=== PATIENT | male | born 1955 | race Caucasian/White ===

== ENCOUNTER 2021-04-12 07:19 | Emergency (ER) | payer SELFPAY ==
[~2021-04-12] VITALS: Ht 180.3 cm; Wt 90.9 kg
[2021-04-12] MEDS ORDERED: ALBU8HFA IH (07:32)
[2021-04-12] MEDS ORDERED: MAGNESIUM CITRATE 300 ML ORAL SOLUTION PO ONE (08:45)
[2021-04-12 09:17] VITALS: BP 153/91
== END 2021-04-12 11:33 | disposition home or self-care (01) ==
LOC: EMS 07:27
DX: S20.211A Contusion of right front wall of thorax, initial encounter (principal); K59.00 Constipation, unspecified; G89.29 Other chronic pain; M25.552 Pain in left hip; J44.9 Chronic obstructive pulmonary disease, unspecified; Z88.0 Allergy status to penicillin; Z88.6 Allergy status to analgesic agent; Z79.899 Other long term (current) drug therapy; W05.0XXA Fall from non-moving wheelchair, initial encounter; Y93.89 Activity, other specified; Y92.89 Other specified places as the place of occurrence of the external cause; Y99.8 Other external cause status
CPT/HCPCS: 74022; 82962; 99283

== ENCOUNTER 2021-04-28 21:50 | Inpatient (IN) | payer MEDICAID ==
[~2021-04-28] VITALS: Ht 185.4 cm; Wt 75.2 kg
[~2021-04-28 21:50] MED LIST: ALBU8HFA IH
[2021-04-28] MEDS ORDERED: BUPR-93 PO (22:17)
[2021-04-28] MEDS ORDERED: BUPR150SR PO (22:17)
[2021-04-28 22:29] LABS: BASOPHILS % (AUTO) 1.6 % (0.0-2.0); HEMATOCRIT 37.8 % (41-53); HEMOGLOBIN 12.6 g/dL (13.5-17.5); LYMPHOCYTES # (AUTO) 1.3 K/uL (1.0-4.8); LYMPHOCYTES % (AUTO) 16.9 % (22.0-44.0); MEAN CORPUSCULAR HEMOGLOBIN 32.5 pg (26.0-34.0); MEAN CORPUSCULAR HGB CONC 33.4 G/dL (31.0-37.0); MEAN CORPUSCULAR VOLUME 97 fL (80-100); MONOCYTES # (AUTO) 0.8 K/uL (0.1-1.0); MONOCYTES % (AUTO) 10.4 % (2.0-9.0); NEUTROPHILS # (AUTO) 5.5 K/uL (1.8-7.7); NEUTROPHILS % (AUTO) 70.1 % (40.0-70.0); PLATELET COUNT (AUTO) 296 K/uL (150-450); RED BLOOD CELL COUNT(AUTO) 3.88 MIL/uL (4.50-5.90); RED CELL DISTRIBUTION WIDTH 15.7 % (11.5-14.5)
[2021-04-28] MEDS ORDERED: ALBUTEROL SULFATE HFA 90 MCG/PUFF 8 GM INHALER IH ONE (23:00)
[2021-04-28] MEDS ORDERED: KETOROLAC TROMETHAMINE 30 MG/ML VIAL IM ONE (23:00)
[2021-04-28 23:03] LABS: ANION GAP 4 mmol/L (8-16); CALCIUM, TOTAL 8.6 mg/dL (8.8-10.5); CARBON DIOXIDE 30 mmol/L (22-29); CHLORIDE 104 mmol/L (98-107); CREATININE 0.83 mg/dL (0.60-1.30); GLOMERULAR FILTR. RATE CALC > 60 mL/min (>60); GLUCOSE,RANDOM 94 mg/dL (70-110); POTASSIUM 3.9 mmol/L (3.5-5.1); SODIUM SERUM 138 mmol/L (136-145); UREA NITROGEN, BLOOD 13 mg/dL (7-18)
[2021-04-28 23:08] LABS: ALANINE AMINOTRANSFERASE 27 U/L (12-78); ALBUMIN 3.3 g/dL (3.4-5.0); ALKALINE PHOSPHATASE 155 U/L (46-116); ASPARTATE AMINOTRANSFERASE 34 U/L (15-37); BILIRUBIN,TOTAL 0.6 mg/dL (0.1-1.0); TOTAL PROTEIN, SERUM 6.3 g/dL (6.4-8.2)
[2021-04-28 23:40] LABS: SALICYLATE 2.5 mg/dL (2.8-20.0)
[2021-04-28 23:43] LABS: ACETAMINOPHEN < 2 mcg/mL (10-30)
[2021-04-29] MEDS ORDERED: HALOPERIDOL 5 MG TABLET PO PRN (00:45)
[2021-04-29 02:07] LABS: COVID AG,FIA SOURCE NASOPHARYNGEAL
[2021-04-29 03:15] VITALS: BP 130/99
[2021-04-29] MEDS: LORazepam 2 MG TABLET PO PRN ×3 (03:43→20:50)
[2021-04-29 04:02] LABS: APPEARANCE,URINE SL CLOUDY (CLEAR); BILIRUBIN,URINE NEGATIVE (NEGATIVE); GLUCOSE, URINE (UA) NEGATIVE (NEGATIVE); KETONES,URINE NEGATIVE (NEGATIVE); LEUKOCYTE ESTERASE ,URINE NEGATIVE (NEGATIVE); NITRATE,URINE NEGATIVE (NEGATIVE); OCCULT BLOOD,URINE NEGATIVE (NEGATIVE); PROTEIN,URINE NEGATIVE (NEGATIVE)
[2021-04-29 04:07] LABS: AMPHET/METH SCREEN,URINE NEGATIVE (NEGATIVE); BARBITURATE SCREEN, URINE NEGATIVE (NEGATIVE); BENZODIAZEPINES SCREEN,URINE NEGATIVE (NEGATIVE); CANNABINOID SCREEN,URINE NEGATIVE (NEGATIVE); COCAINE SCREEN,URINE NEGATIVE (NEGATIVE); METHADONE SCREEN, URINE NEGATIVE (NEGATIVE); OPIATE SCREEN,URINE NEGATIVE (NEGATIVE)
[2021-04-29 04:08] LABS: PHENCYCLIDINE SCREEN,URINE NEGATIVE (NEGATIVE)
[2021-04-29] MEDS ORDERED: MAGNESIUM HYDROXIDE SUSPENSION 30 ML UDCUP PO PRN (07:15)
[2021-04-29] MEDS ORDERED: PETROLATUM,WHITE 28 GM JELLY TP PRN (07:15)
[2021-04-29] MEDS ORDERED: DOCUSATE SODIUM 100 MG CAPSULE PO PRN (07:15)
[2021-04-29] MEDS ORDERED: CloNIDine HCL 0.1 MG TABLET PO PRN (07:15)
[2021-04-29] MEDS ORDERED: ONDANSETRON HCL 4 MG TABLET PO PRN (07:15)
[2021-04-29] MEDS ORDERED: LOPERAMIDE HCL 2 MG CAPSULE PO PRN (07:15)
[2021-04-29] MEDS ORDERED: ALBUTEROL SULFATE HFA 90 MCG/PUFF 8 GM INHALER IH PRN ×2 (07:15)
[2021-04-29] MEDS ORDERED: MAG HYDROX/AL HYDROX/SIMETH ES 30 ML SUSPENSION UDCUP PO PRN (07:15)
[2021-04-29] MEDS ORDERED: NICOTINE 14 MG/24 HOUR PATCH TD PRN (07:15)
[2021-04-29] MEDS ORDERED: GuaiFENesin/D-METHORPHAN [SUGAR-FREE] 200-20MG/10 ML SYRUP UDCUP PO PRN (07:15)
[2021-04-29] MEDS: BuPROPion HCL XL 150 MG ER TABLET PO SCH ×2 (12:31→16:28)
[2021-04-29 16:28] VITALS: BP 169/97
[2021-04-29] MEDS: ACETAMINOPHEN 325 MG TABLET PO PRN (16:28)
[2021-04-29 17:29] VITALS: BP 156/94
[2021-04-29] MEDS: ZOLPIDEM TARTRATE 10 MG TABLET PO PRN (20:58)
[2021-04-30] MEDS: IBUPROFEN 400 MG TABLET PO PRN ×2 (00:27→20:13)
[2021-04-30 00:53] VITALS: BP 156/90
[2021-04-30] MEDS: LORazepam 2 MG TABLET PO PRN ×3 (00:53→23:14)
[2021-04-30] MEDS: ACETAMINOPHEN 325 MG TABLET PO PRN (00:53)
[2021-04-30] MEDS: BuPROPion HCL XL 150 MG ER TABLET PO SCH ×2 (09:37→16:21)
[2021-04-30 09:42] VITALS: BP 160/81
[2021-04-30] MEDS: ALBUTEROL SULFATE HFA 90 MCG/PUFF 8 GM INHALER IH PRN ×2 (15:30→20:14)
[2021-04-30 16:13] VITALS: BP 152/84
[2021-04-30 20:13] VITALS: BP 150/81
[2021-04-30 21:13] VITALS: BP 148/85
[2021-05-01] VITALS (7 sets, daily range): BP systolic 135–152; BP diastolic 62–88
[2021-05-01] MEDS: ALBUTEROL SULFATE HFA 90 MCG/PUFF 8 GM INHALER IH PRN ×3 (07:02→22:43)
[2021-05-01] MEDS: BuPROPion HCL XL 150 MG ER TABLET PO SCH ×2 (08:13→16:12)
[2021-05-01] MEDS: LORazepam 2 MG TABLET PO PRN ×3 (08:15→22:53)
[2021-05-01] MEDS: IBUPROFEN 400 MG TABLET PO PRN ×2 (09:35→22:43)
[2021-05-02 04:05] VITALS: BP 128/77
[2021-05-02] MEDS: BuPROPion HCL XL 150 MG ER TABLET PO SCH ×2 (07:46→16:03)
[2021-05-02] MEDS: ALBUTEROL SULFATE HFA 90 MCG/PUFF 8 GM INHALER IH PRN ×2 (07:48→20:32)
[2021-05-02] MEDS: LORazepam 2 MG TABLET PO PRN ×3 (08:05→21:21)
[2021-05-02 08:55] VITALS: BP 130/72
[2021-05-02 17:20] VITALS: BP 137/80
[2021-05-02 20:04] VITALS: BP 142/79
[2021-05-02] MEDS: IBUPROFEN 400 MG TABLET PO PRN (20:04)
[2021-05-02 21:04] VITALS: BP 138/78
[2021-05-03] MEDS: ALBUTEROL SULFATE HFA 90 MCG/PUFF 8 GM INHALER IH PRN ×4 (03:43→21:03)
[2021-05-03] MEDS: LORazepam 2 MG TABLET PO PRN ×4 (03:44→21:54)
[2021-05-03 03:56] VITALS: BP 128/75
[2021-05-03] MEDS: BuPROPion HCL XL 150 MG ER TABLET PO SCH ×2 (08:58→16:24)
[2021-05-03 09:00] VITALS: BP 134/78
[2021-05-03] MEDS: IBUPROFEN 400 MG TABLET PO PRN ×2 (09:49→21:01)
[2021-05-03 16:00] VITALS: BP 141/85
[2021-05-04 04:49] VITALS: BP 129/71
[2021-05-04 08:48] VITALS: BP 146/84
[2021-05-04] MEDS: BuPROPion HCL XL 150 MG ER TABLET PO SCH ×2 (08:49→16:18)
[2021-05-04] MEDS: LORazepam 2 MG TABLET PO PRN ×2 (08:55→16:59)
[2021-05-04] MEDS: IBUPROFEN 400 MG TABLET PO PRN ×2 (08:55→20:08)
[2021-05-04 16:00] VITALS: BP 126/89
[2021-05-04 16:32] VITALS: BP 126/89
[2021-05-05] MEDS: BuPROPion HCL XL 150 MG ER TABLET PO SCH ×2 (08:34→16:27)
[2021-05-05] MEDS: LORazepam 2 MG TABLET PO PRN ×3 (08:35→22:37)
[2021-05-05 11:31] LABS: COVID AG,FIA SOURCE NASOPHARYNGEAL
[2021-05-05 16:10] VITALS: BP 121/75
[2021-05-05 16:54] VITALS: BP 120/77
[2021-05-05] MEDS: ALBUTEROL SULFATE HFA 90 MCG/PUFF 8 GM INHALER IH PRN (16:55)
[2021-05-05 17:54] VITALS: BP 119/65
[2021-05-05 22:37] VITALS: BP 128/69
[2021-05-06] MEDS: IBUPROFEN 400 MG TABLET PO PRN ×2 (00:48→09:06)
[2021-05-06 00:51] VITALS: BP 149/78
[2021-05-06] MEDS: ALBUTEROL SULFATE HFA 90 MCG/PUFF 8 GM INHALER IH PRN ×3 (00:58→20:16)
[2021-05-06 09:04] VITALS: BP 142/79
[2021-05-06] MEDS: LORazepam 2 MG TABLET PO PRN ×3 (09:07→22:41)
[2021-05-06] MEDS: BuPROPion HCL XL 150 MG ER TABLET PO SCH ×2 (09:07→17:12)
[2021-05-06 16:43] VITALS: BP 146/86
[2021-05-06] MEDS: ZOLPIDEM TARTRATE 10 MG TABLET PO PRN (22:41)
[2021-05-07 00:25] VITALS: BP 140/80
[2021-05-07 08:01] VITALS: BP 132/76
[2021-05-07] MEDS: LORazepam 2 MG TABLET PO PRN ×3 (09:03→20:54)
[2021-05-07] MEDS: BuPROPion HCL XL 150 MG ER TABLET PO SCH ×2 (09:04→16:12)
[2021-05-07 16:38] VITALS: BP 152/82
[2021-05-07] MEDS: ZOLPIDEM TARTRATE 10 MG TABLET PO PRN (20:54)
[2021-05-08] MEDS: BuPROPion HCL XL 150 MG ER TABLET PO SCH ×2 (08:01→16:42)
[2021-05-08] MEDS: LORazepam 2 MG TABLET PO PRN ×3 (08:35→21:02)
[2021-05-08 09:43] VITALS: BP 147/71
[2021-05-08 16:18] VITALS: BP 149/83
[2021-05-08] MEDS: ZOLPIDEM TARTRATE 10 MG TABLET PO PRN (21:03)
[2021-05-09] MEDS: LORazepam 2 MG TABLET PO PRN ×4 (02:27→20:43)
[2021-05-09 02:30] VITALS: BP 142/80
[2021-05-09] MEDS: IBUPROFEN 400 MG TABLET PO PRN ×2 (02:30→10:30)
[2021-05-09] MEDS: BuPROPion HCL XL 150 MG ER TABLET PO SCH ×2 (08:06→16:26)
[2021-05-09 08:30] VITALS: BP 129/81
[2021-05-09] MEDS: ALBUTEROL SULFATE HFA 90 MCG/PUFF 8 GM INHALER IH PRN (09:35)
[2021-05-09] MEDS: ZOLPIDEM TARTRATE 10 MG TABLET PO PRN (20:43)
[2021-05-10 02:08] VITALS: BP 140/69
[2021-05-10] MEDS: LORazepam 2 MG TABLET PO PRN ×3 (02:08→18:07)
[2021-05-10] MEDS: BuPROPion HCL XL 150 MG ER TABLET PO SCH ×2 (08:28→16:40)
[2021-05-10 09:24] VITALS: BP 143/80
[2021-05-10 16:00] VITALS: BP 141/69
[2021-05-10] MEDS: ALBUTEROL SULFATE HFA 90 MCG/PUFF 8 GM INHALER IH PRN (18:09)
[2021-05-10] MEDS: IBUPROFEN 400 MG TABLET PO PRN (19:30)
[2021-05-11 01:24] VITALS: BP 147/77
[2021-05-11] MEDS: LORazepam 2 MG TABLET PO PRN ×2 (01:44→08:39)
[2021-05-11] MEDS: ZOLPIDEM TARTRATE 10 MG TABLET PO PRN (01:44)
[2021-05-11] MEDS: BuPROPion HCL XL 150 MG ER TABLET PO SCH (08:35)
[2021-05-11 11:49] VITALS: BP 141/78
== END 2021-05-11 15:45 | disposition home or self-care (01) | DRG 751 ==
LOC: EMS 21:50 → 3EI 04-29 01:58
PROVIDERS: ADMIT Psychiatry & Neurology Child & Adolescent Psychiatry; ATTEND Psychiatry & Neurology Child & Adolescent Psychiatry
DX: F33.2 Major depressive disorder, recurrent severe without psychotic features (principal); E44.0 Moderate protein-calorie malnutrition; R45.851 Suicidal ideations; J44.9 Chronic obstructive pulmonary disease, unspecified; Z91.19 Patient's noncompliance with other medical treatment and regimen; K59.00 Constipation, unspecified; Z59.0 Homelessness; Z96.649 Presence of unspecified artificial hip joint; Z91.5 Personal history of self-harm; Z68.21 Body mass index [BMI] 21.0-21.9, adult; F17.200 Nicotine dependence, unspecified, uncomplicated; G89.29 Other chronic pain; R29.6 Repeated falls; Z88.6 Allergy status to analgesic agent; Z88.0 Allergy status to penicillin
CPT/HCPCS: 71046; 80053; 80061; 81003; 85025; 99285; G0480; G0481; J1885; J3535; 36415-L1; 36415-TC

== ENCOUNTER 2021-07-09 03:08 | Inpatient (IN) | payer MEDICAID ==
[~2021-07-09] VITALS: Ht 185.4 cm; Wt 72.4 kg
[~2021-07-09 03:08] MED LIST changes: -ALBU8HFA IH; +BUPR150SR PO
[2021-07-09 03:51] LABS: EOSINOPHILS % (AUTO) 1.7 % (1.0-6.0); HEMATOCRIT 40.4 % (41-53); HEMOGLOBIN 13.5 g/dL (13.5-17.5); LYMPHOCYTES # (AUTO) 1.9 K/uL (1.0-4.8); LYMPHOCYTES % (AUTO) 21.5 % (22.0-44.0); MEAN CORPUSCULAR HGB CONC 33.4 G/dL (31.0-37.0); MEAN CORPUSCULAR VOLUME 96 fL (80-100); MONOCYTES # (AUTO) 0.8 K/uL (0.1-1.0); MONOCYTES % (AUTO) 9.5 % (2.0-9.0); NEUTROPHILS # (AUTO) 5.8 K/uL (1.8-7.7); NEUTROPHILS % (AUTO) 66.3 % (40.0-70.0); PLATELET COUNT (AUTO) 222 K/uL (150-450); RED BLOOD CELL COUNT(AUTO) 4.21 MIL/uL (4.50-5.90)
[2021-07-09 04:07] LABS: ANION GAP 6 mmol/L (8-16); CALCIUM, TOTAL 8.6 mg/dL (8.8-10.5); CARBON DIOXIDE 30 mmol/L (22-29); CHLORIDE 104 mmol/L (98-107); CREATININE 0.75 mg/dL (0.60-1.30); GLOMERULAR FILTR. RATE CALC > 60 mL/min (>60); GLUCOSE,RANDOM 79 mg/dL (70-110); POTASSIUM 3.7 mmol/L (3.5-5.1); SODIUM SERUM 140 mmol/L (136-145); UREA NITROGEN, BLOOD 15 mg/dL (7-18)
[2021-07-09 04:11] LABS: ALANINE AMINOTRANSFERASE 45 U/L (12-78); ALBUMIN 3.6 g/dL (3.4-5.0); ALKALINE PHOSPHATASE 116 U/L (46-116); ASPARTATE AMINOTRANSFERASE 35 U/L (15-37); BILIRUBIN,TOTAL 0.5 mg/dL (0.1-1.0); TOTAL PROTEIN, SERUM 6.9 g/dL (6.4-8.2)
[2021-07-09 04:23] LABS: COVID AG,FIA SOURCE NASOPHARYNGEAL
[2021-07-09] MEDS ORDERED: PERMETHRIN 5% 60 GM CREAM TP ONE (04:30)
[2021-07-09] MEDS ORDERED: HALOPERIDOL 5 MG TABLET PO PRN (04:45)
[2021-07-09] MEDS ORDERED: ZOLPIDEM TARTRATE 10 MG TABLET PO PRN (04:45)
[2021-07-09 05:42] LABS: APPEARANCE,URINE CLEAR (CLEAR); BILIRUBIN,URINE NEGATIVE (NEGATIVE); GLUCOSE, URINE (UA) NEGATIVE (NEGATIVE); KETONES,URINE NEGATIVE (NEGATIVE); LEUKOCYTE ESTERASE ,URINE NEGATIVE (NEGATIVE); NITRATE,URINE NEGATIVE (NEGATIVE); OCCULT BLOOD,URINE NEGATIVE (NEGATIVE); PROTEIN,URINE NEGATIVE (NEGATIVE); UROBILINOGEN,URINE 0.2 mg/dL (<=1.0)
[2021-07-09] MEDS ORDERED: HALOPERIDOL LACTATE 5 MG/ML VIAL IM ONE (05:45)
[2021-07-09 05:47] LABS: AMPHET/METH SCREEN,URINE NEGATIVE (NEGATIVE); BARBITURATE SCREEN, URINE NEGATIVE (NEGATIVE); BENZODIAZEPINES SCREEN,URINE NEGATIVE (NEGATIVE); CANNABINOID SCREEN,URINE NEGATIVE (NEGATIVE); COCAINE SCREEN,URINE NEGATIVE (NEGATIVE); METHADONE SCREEN, URINE NEGATIVE (NEGATIVE); OPIATE SCREEN,URINE NEGATIVE (NEGATIVE)
[2021-07-09 05:53] LABS: PHENCYCLIDINE SCREEN,URINE NEGATIVE (NEGATIVE)
[2021-07-09] MEDS ORDERED: ONDANSETRON HCL 4 MG TABLET PO PRN (08:30)
[2021-07-09] MEDS ORDERED: LOPERAMIDE HCL 2 MG CAPSULE PO PRN (08:30)
[2021-07-09] MEDS ORDERED: CloNIDine HCL 0.1 MG TABLET PO PRN (08:30)
[2021-07-09] MEDS ORDERED: BACITRACIN 28 GM OINTMENT TP PRN (08:30)
[2021-07-09] MEDS ORDERED: ALBUTEROL SULFATE HFA 90 MCG/PUFF 8 GM INHALER IH PRN (08:30)
[2021-07-09] MEDS ORDERED: OMEPRAZOLE 20 MG CAPSULE PO PRN (08:30)
[2021-07-09] MEDS ORDERED: PETROLATUM,WHITE 28 GM JELLY TP PRN (08:30)
[2021-07-09] MEDS ORDERED: MAGNESIUM HYDROXIDE SUSPENSION 30 ML UDCUP PO PRN (08:30)
[2021-07-09] MEDS ORDERED: DOCUSATE SODIUM 100 MG CAPSULE PO PRN (08:30)
[2021-07-09] MEDS ORDERED: BENZOCAINE/MENTHOL LOZENGE PO PRN (08:30)
[2021-07-09] MEDS ORDERED: MAG HYDROX/AL HYDROX/SIMETH ES 30 ML SUSPENSION UDCUP PO PRN (08:30)
[2021-07-09 11:43] VITALS: BP 120/69
[2021-07-09] MEDS: ACETAMINOPHEN 325 MG TABLET PO PRN ×2 (13:20→19:21)
[2021-07-09 16:19] VITALS: BP 110/81
[2021-07-09] MEDS ORDERED: PNEUMOCOCCAL VACCINE POLYVALENT 0.5 ML VIAL [PPSV23] IM. ONE (21:45)
[2021-07-10] MEDS: LORazepam 2 MG TABLET PO PRN ×4 (00:42→17:57)
[2021-07-10] MEDS: ACETAMINOPHEN 325 MG TABLET PO PRN (00:43)
[2021-07-10 00:45] VITALS: BP_SYST 180; BP_SYST 182; BP_DIAS 85
[2021-07-10 01:51] LABS: CHOL/HDL RATIO 2.2 (4.2-7.3); CHOLESTEROL 158 mg/dL (131-200); HDL CHOLESTEROL 71 mg/dL (40-60); LDL CHOL (CALC.) 75 mg/dL (0-130); TRIGLYCERIDES 58 mg/dL (15-150)
[2021-07-10] MEDS: BuPROPion HCL XL 150 MG ER TABLET PO SCH ×2 (08:32→12:39)
[2021-07-10 08:55] VITALS: BP 140/86
[2021-07-10 16:22] VITALS: BP 112/82
[2021-07-11] MEDS: ACETAMINOPHEN 325 MG TABLET PO PRN (03:26)
[2021-07-11] MEDS: LORazepam 2 MG TABLET PO PRN ×2 (03:26→10:42)
[2021-07-11 03:27] VITALS: BP 123/88
[2021-07-11 06:29] VITALS: BP 106/78
[2021-07-11] MEDS: BuPROPion HCL XL 150 MG ER TABLET PO SCH ×2 (08:25→12:35)
[2021-07-11 08:30] VITALS: BP 131/74
[2021-07-11] MEDS ORDERED: BUPR-93 PO (12:55)
== END 2021-07-11 13:50 | disposition home or self-care (01) | DRG 754 ==
LOC: EMS 03:10 → B3A 05:12
PROVIDERS: ADMIT Psychiatry & Neurology Psychiatry; ATTEND Psychiatry & Neurology Psychiatry
DX: F32.9 Major depressive disorder, single episode, unspecified (principal); R45.851 Suicidal ideations; F17.210 Nicotine dependence, cigarettes, uncomplicated; F20.9 Schizophrenia, unspecified; G89.29 Other chronic pain; J44.9 Chronic obstructive pulmonary disease, unspecified; L29.9 Pruritus, unspecified; Y90.4 Blood alcohol level of 80-99 mg/100 ml; Z20.822 Contact with and (suspected) exposure to COVID-19; Z96.649 Presence of unspecified artificial hip joint; G47.00 Insomnia, unspecified; K59.00 Constipation, unspecified; F19.10 Other psychoactive substance abuse, uncomplicated; M25.552 Pain in left hip; F41.9 Anxiety disorder, unspecified; Z88.0 Allergy status to penicillin; Z88.8 Allergy status to other drugs, medicaments and biological substances; Z79.899 Other long term (current) drug therapy
CPT/HCPCS: 80053; 80061; 81003; 85025; 99285; G0480; J1630

== ENCOUNTER 2021-07-28 03:06 | Inpatient (IN) | payer MEDICAID ==
[~2021-07-28 03:06] MED LIST changes: +BUPR-93 PO; -BUPR150SR PO
== END 2021-07-28 06:55 | disposition home or self-care (01) | DRG 750 ==
LOC: B2S 04:00
PROVIDERS: ADMIT Psychiatry & Neurology Psychiatry; ATTEND Psychiatry & Neurology Psychiatry
DX: F25.0 Schizoaffective disorder, bipolar type (principal); G89.29 Other chronic pain; M25.552 Pain in left hip; Z53.29 Procedure and treatment not carried out because of patient's decision for other reasons; Z88.0 Allergy status to penicillin; Z88.8 Allergy status to other drugs, medicaments and biological substances
CPT/HCPCS: 87081

== ENCOUNTER 2021-08-01 02:07 | Inpatient (IN) | payer MEDICAID ==
[~2021-08-01] VITALS: Ht 188 cm; Wt 32.7 kg
[2021-08-01] MEDS ORDERED: ACETAMINOPHEN 500 MG TABLET PO ONE (03:45)
[2021-08-01] MEDS ORDERED: ZOLPIDEM TARTRATE 10 MG TABLET PO PRN (04:30)
[2021-08-01] MEDS ORDERED: HALOPERIDOL 5 MG TABLET PO PRN (04:30)
[2021-08-01 04:45] LABS: BASOPHILS % (AUTO) 0.5 % (0.0-2.0); EOSINOPHILS % (AUTO) 2.9 % (1.0-6.0); HEMATOCRIT 35.4 % (41-53); HEMOGLOBIN 11.8 g/dL (13.5-17.5); LYMPHOCYTES # (AUTO) 1.4 K/uL (1.0-4.8); LYMPHOCYTES % (AUTO) 17.1 % (22.0-44.0); MEAN CORPUSCULAR HEMOGLOBIN 32.1 pg (26.0-34.0); MEAN CORPUSCULAR HGB CONC 33.3 G/dL (31.0-37.0); MEAN CORPUSCULAR VOLUME 96 fL (80-100); MONOCYTES # (AUTO) 0.7 K/uL (0.1-1.0); MONOCYTES % (AUTO) 8.5 % (2.0-9.0); NEUTROPHILS # (AUTO) 5.9 K/uL (1.8-7.7); PLATELET COUNT (AUTO) 295 K/uL (150-450); RED BLOOD CELL COUNT(AUTO) 3.67 MIL/uL (4.50-5.90); RED CELL DISTRIBUTION WIDTH 13.6 % (11.5-14.5)
[2021-08-01 04:59] LABS: ANION GAP 8 mmol/L (8-16); CALCIUM, TOTAL 8.4 mg/dL (8.8-10.5); CARBON DIOXIDE 29 mmol/L (22-29); CHLORIDE 100 mmol/L (98-107); CREATININE 0.76 mg/dL (0.60-1.30); GLOMERULAR FILTR. RATE CALC > 60 mL/min (>60); GLUCOSE,RANDOM 94 mg/dL (70-110); POTASSIUM 3.6 mmol/L (3.5-5.1); SODIUM SERUM 137 mmol/L (136-145); UREA NITROGEN, BLOOD 15 mg/dL (7-18)
[2021-08-01 05:04] LABS: ALANINE AMINOTRANSFERASE 38 U/L (12-78); ALBUMIN 3.2 g/dL (3.4-5.0); ALKALINE PHOSPHATASE 143 U/L (46-116); ASPARTATE AMINOTRANSFERASE 31 U/L (15-37); BILIRUBIN,TOTAL 0.5 mg/dL (0.1-1.0); TOTAL PROTEIN, SERUM 6.3 g/dL (6.4-8.2)
[2021-08-01 05:11] LABS: COVID AG,FIA SOURCE NASOPHARYNGEAL
[2021-08-01 08:54] VITALS: BP 122/70
[2021-08-01 08:56] LABS: AMPHET/METH SCREEN,URINE NEGATIVE (NEGATIVE); BARBITURATE SCREEN, URINE NEGATIVE (NEGATIVE); BENZODIAZEPINES SCREEN,URINE NEGATIVE (NEGATIVE); CANNABINOID SCREEN,URINE POSITIVE (NEGATIVE); COCAINE SCREEN,URINE NEGATIVE (NEGATIVE); METHADONE SCREEN, URINE NEGATIVE (NEGATIVE); OPIATE SCREEN,URINE NEGATIVE (NEGATIVE); PHENCYCLIDINE SCREEN,URINE NEGATIVE (NEGATIVE)
[2021-08-01 09:49] VITALS: BP 122/70
[2021-08-01 09:55] VITALS: BP 122/70
[2021-08-01 16:00] VITALS: BP 119/71
[2021-08-01] MEDS: LORazepam 2 MG TABLET PO PRN (16:56)
[2021-08-02 01:36] VITALS: BP 140/82
[2021-08-02 05:54] LABS: CHOL/HDL RATIO 1.7 (4.2-7.3); CHOLESTEROL 145 mg/dL (131-200); HDL CHOLESTEROL 86 mg/dL (40-60); LDL CHOL (CALC.) 53 mg/dL (0-130); TRIGLYCERIDES 32 mg/dL (15-150)
[2021-08-02 08:45] VITALS: BP 129/78
[2021-08-02] MEDS: MULTIVITAMINS WITH MINERALS, THERAPEUTIC TABLET PO SCH (09:04)
[2021-08-02 09:16] VITALS: BP 129/78
[2021-08-02] MEDS: BuPROPion HCL XL 150 MG ER TABLET PO SCH ×2 (09:31→12:59)
[2021-08-02 16:20] VITALS: BP 140/78
[2021-08-02 17:11] VITALS: BP 142/88
[2021-08-02] MEDS: LORazepam 2 MG TABLET PO PRN (17:11)
[2021-08-02 20:00] VITALS: BP 139/79
[2021-08-02] MEDS: ACETAMINOPHEN 325 MG TABLET PO PRN (20:00)
[2021-08-03 01:57] VITALS: BP 140/70
[2021-08-03 04:00] VITALS: BP 142/82
[2021-08-03] MEDS: LORazepam 2 MG TABLET PO PRN ×3 (04:18→19:26)
[2021-08-03] MEDS: MULTIVITAMINS WITH MINERALS, THERAPEUTIC TABLET PO SCH (09:00)
[2021-08-03] MEDS: BuPROPion HCL XL 150 MG ER TABLET PO SCH ×2 (09:00→12:42)
[2021-08-03 09:06] VITALS: BP 146/79
[2021-08-03] MEDS: ACETAMINOPHEN 325 MG TABLET PO PRN ×2 (12:42→18:35)
[2021-08-03 16:00] VITALS: BP 138/80
[2021-08-03] MEDS ORDERED: BUPR150SR PO (21:55)
[2021-08-04] MEDS ORDERED: BuPROPion HCL 150 MG SR TABLET PO SCH (09:00)
== END 2021-08-03 22:30 | disposition home or self-care (01) | DRG 754 ==
LOC: EMS 02:08 → 3EI 04:26
PROVIDERS: ADMIT Psychiatry & Neurology Psychiatry; ATTEND Psychiatry & Neurology Psychiatry
DX: F32.9 Major depressive disorder, single episode, unspecified (principal); R45.851 Suicidal ideations; F41.9 Anxiety disorder, unspecified; G47.00 Insomnia, unspecified; I10 Essential (primary) hypertension; J44.9 Chronic obstructive pulmonary disease, unspecified; Z20.822 Contact with and (suspected) exposure to COVID-19; M25.552 Pain in left hip; K21.9 Gastro-esophageal reflux disease without esophagitis; K59.00 Constipation, unspecified; M16.10 Unilateral primary osteoarthritis, unspecified hip; Z96.649 Presence of unspecified artificial hip joint; G89.29 Other chronic pain; Z59.00 Homelessness unspecified; Z88.0 Allergy status to penicillin; Z88.6 Allergy status to analgesic agent
CPT/HCPCS: 80053; 80061; 85025; 99285; G0480

== ENCOUNTER 2021-08-04 22:48 | Emergency (ER) | payer MEDICAID ==
[~2021-08-04] VITALS: Ht 185.4 cm; Wt 77.3 kg
[~2021-08-04 22:48] MED LIST changes: -BUPR-93 PO; +BUPR150SR PO
[2021-08-05] MEDS ORDERED: LORazepam 2 MG TABLET PO PRN (00:30)
[2021-08-05] MEDS ORDERED: HALOPERIDOL 5 MG TABLET PO PRN (00:30)
[2021-08-05] MEDS ORDERED: ZOLPIDEM TARTRATE 10 MG TABLET PO PRN (00:30)
[2021-08-05 00:43] LABS: COVID AG,FIA SOURCE NASOPHARYNGEAL
[2021-08-05] MEDS ORDERED: LORazepam 2 MG TABLET PO ONE (04:00)
[2021-08-05 04:10] LABS: APPEARANCE,URINE CLEAR (CLEAR); BILIRUBIN,URINE NEGATIVE (NEGATIVE); GLUCOSE, URINE (UA) NEGATIVE (NEGATIVE); KETONES,URINE NEGATIVE (NEGATIVE); LEUKOCYTE ESTERASE ,URINE NEGATIVE (NEGATIVE); NITRATE,URINE NEGATIVE (NEGATIVE); OCCULT BLOOD,URINE NEGATIVE (NEGATIVE); PH,URINE 6.5 (5.0-8.0); PROTEIN,URINE NEGATIVE (NEGATIVE); UROBILINOGEN,URINE 0.2 mg/dL (<=1.0)
[2021-08-05 04:16] LABS: AMPHET/METH SCREEN,URINE NEGATIVE (NEGATIVE); BARBITURATE SCREEN, URINE NEGATIVE (NEGATIVE); BENZODIAZEPINES SCREEN,URINE NEGATIVE (NEGATIVE); CANNABINOID SCREEN,URINE NEGATIVE (NEGATIVE); COCAINE SCREEN,URINE NEGATIVE (NEGATIVE); METHADONE SCREEN, URINE NEGATIVE (NEGATIVE); OPIATE SCREEN,URINE NEGATIVE (NEGATIVE)
[2021-08-05 04:25] LABS: PHENCYCLIDINE SCREEN,URINE NEGATIVE (NEGATIVE)
[2021-08-05] MEDS ORDERED: HALOPERIDOL LACTATE 5 MG/ML VIAL IM ONE (04:45)
[2021-08-05] MEDS ORDERED: DiphenhydrAMINE HCL 50 MG/ML VIAL IM ONE (04:45)
[2021-08-05] MEDS ORDERED: LORazepam 2 MG/ML VIAL IM ONE (04:45)
[2021-08-05 10:53] VITALS: BP 125/69
== END 2021-08-05 11:23 | disposition admitted as inpatient to this hospital (09) ==
LOC: EMS 22:51
DX: G89.29 Other chronic pain (principal); M25.552 Pain in left hip; F32.9 Major depressive disorder, single episode, unspecified; R45.851 Suicidal ideations; J44.9 Chronic obstructive pulmonary disease, unspecified; F17.210 Nicotine dependence, cigarettes, uncomplicated; F12.90 Cannabis use, unspecified, uncomplicated; Z20.822 Contact with and (suspected) exposure to COVID-19; Z88.6 Allergy status to analgesic agent; Z88.0 Allergy status to penicillin
CPT/HCPCS: 80307; 81003; 87426; 96372; 99285; J1200; J1630; J2060

== ENCOUNTER 2021-08-06 00:24 | Emergency (ER) | payer MEDICAID ==
[~2021-08-06] VITALS: Ht 190.5 cm; Wt 77.3 kg
[2021-08-06 02:37] VITALS: BP 135/77
== END 2021-08-06 03:00 | disposition home or self-care (01) ==
LOC: EMS 00:24
DX: F32.9 Major depressive disorder, single episode, unspecified (principal)
CPT/HCPCS: 99283; 99284

== ENCOUNTER 2021-09-27 22:02 | Inpatient (IN) | payer MEDICAID ==
[2021-09-28] MEDS ORDERED: HALOPERIDOL 5 MG TABLET PO PRN (04:15)
[2021-09-28 06:00] VITALS: BP 133/70
[2021-09-28] MEDS ORDERED: PNEUMOCOCCAL VACCINE POLYVALENT 0.5 ML VIAL [PPSV23] IM. ONE (06:15)
[2021-09-28] MEDS ORDERED: MAGNESIUM HYDROXIDE SUSPENSION 30 ML UDCUP PO PRN (06:30)
[2021-09-28] MEDS ORDERED: PETROLATUM,WHITE 28 GM JELLY TP PRN (06:30)
[2021-09-28] MEDS ORDERED: BENZOCAINE/MENTHOL LOZENGE PO PRN (06:30)
[2021-09-28] MEDS ORDERED: OMEPRAZOLE 20 MG CAPSULE PO PRN (06:30)
[2021-09-28] MEDS ORDERED: MAG HYDROX/AL HYDROX/SIMETH ES 30 ML SUSPENSION UDCUP PO PRN (06:30)
[2021-09-28] MEDS ORDERED: DOCUSATE SODIUM 100 MG CAPSULE PO PRN (06:30)
[2021-09-28] MEDS ORDERED: BACITRACIN 28 GM OINTMENT TP PRN (06:30)
[2021-09-28] MEDS ORDERED: LOPERAMIDE HCL 2 MG CAPSULE PO PRN (06:30)
[2021-09-28] MEDS ORDERED: ONDANSETRON HCL 4 MG TABLET PO PRN (06:30)
[2021-09-28] MEDS ORDERED: CloNIDine HCL 0.1 MG TABLET PO PRN (06:30)
[2021-09-28] MEDS ORDERED: ALBUTEROL SULFATE HFA 90 MCG/PUFF 8 GM INHALER IH PRN (06:30)
[2021-09-28 08:23] VITALS: BP 155/88
[2021-09-28] MEDS: ACETAMINOPHEN 325 MG TABLET PO PRN ×2 (12:45→20:54)
[2021-09-28] MEDS: BuPROPion HCL 150 MG SR TABLET PO SCH (13:16)
[2021-09-28 16:17] VITALS: BP 157/82
[2021-09-28 20:09] VITALS: BP 131/60
[2021-09-29] MEDS: ACETAMINOPHEN 325 MG TABLET PO PRN ×4 (02:49→22:53)
[2021-09-29 03:43] VITALS: BP 146/78
[2021-09-29 07:02] LABS: BASOPHILS % (AUTO) 0.4 % (0.0-2.0); EOSINOPHILS % (AUTO) 2.6 % (1.0-6.0); HEMATOCRIT 35.9 % (41-53); HEMOGLOBIN 11.9 g/dL (13.5-17.5); LYMPHOCYTES # (AUTO) 0.9 K/uL (1.0-4.8); LYMPHOCYTES % (AUTO) 13.7 % (22.0-44.0); MEAN CORPUSCULAR HEMOGLOBIN 32.3 pg (26.0-34.0); MEAN CORPUSCULAR HGB CONC 33.2 G/dL (31.0-37.0); MEAN CORPUSCULAR VOLUME 97 fL (80-100); MONOCYTES # (AUTO) 0.7 K/uL (0.1-1.0); MONOCYTES % (AUTO) 10.9 % (2.0-9.0); NEUTROPHILS # (AUTO) 4.9 K/uL (1.8-7.7); NEUTROPHILS % (AUTO) 72.4 % (40.0-70.0); PLATELET COUNT (AUTO) 263 K/uL (150-450); RED BLOOD CELL COUNT(AUTO) 3.69 MIL/uL (4.50-5.90); RED CELL DISTRIBUTION WIDTH 14.2 % (11.5-14.5)
[2021-09-29 07:25] LABS: ALANINE AMINOTRANSFERASE 24 U/L (12-78); ALBUMIN 2.7 g/dL (3.4-5.0); ALKALINE PHOSPHATASE 120 U/L (46-116); ANION GAP 4 mmol/L (8-16); ASPARTATE AMINOTRANSFERASE 25 U/L (15-37); BILIRUBIN,TOTAL 0.3 mg/dL (0.1-1.0); CALCIUM, TOTAL 8.5 mg/dL (8.8-10.5); CARBON DIOXIDE 30 mmol/L (22-29); CHLORIDE 100 mmol/L (98-107); CHOL/HDL RATIO 1.5 (4.2-7.3); CHOLESTEROL 118 mg/dL (131-200); CREATININE 0.75 mg/dL (0.60-1.30); GLOMERULAR FILTR. RATE CALC > 60 mL/min (>60); GLUCOSE,RANDOM 101 mg/dL (70-110); HDL CHOLESTEROL 80 mg/dL (40-60); LDL CHOL (CALC.) 26 mg/dL (0-130); POTASSIUM 3.9 mmol/L (3.5-5.1); SODIUM SERUM 134 mmol/L (136-145); THYROID STIMULATING HORMONE 1.18 uIU/mL (0.36-3.74); TOTAL PROTEIN, SERUM 5.9 g/dL (6.4-8.2); TRIGLYCERIDES 59 mg/dL (15-150); UREA NITROGEN, BLOOD 12 mg/dL (7-18)
[2021-09-29] MEDS: BuPROPion HCL 150 MG SR TABLET PO SCH (08:32)
[2021-09-29 09:39] VITALS: BP 105/62
[2021-09-29 16:16] VITALS: BP 107/72
[2021-09-29] MEDS: ZOLPIDEM TARTRATE 10 MG TABLET PO PRN (20:15)
[2021-09-29] MEDS: LORazepam 2 MG TABLET PO PRN (22:54)
[2021-09-30 04:56] VITALS: BP 132/88
[2021-09-30 08:39] VITALS: BP 129/77
[2021-09-30] MEDS: BuPROPion HCL 150 MG SR TABLET PO SCH (08:48)
[2021-09-30] MEDS: LORazepam 2 MG TABLET PO PRN ×3 (08:49→23:31)
[2021-09-30] MEDS: ACETAMINOPHEN 325 MG TABLET PO PRN (09:04)
[2021-09-30] MEDS: LIDOCAINE 5% TRANSDERMAL PATCH TD SCH (13:55)
[2021-09-30 16:26] VITALS: BP 145/73
[2021-09-30] MEDS: ZOLPIDEM TARTRATE 10 MG TABLET PO PRN (21:00)
[2021-09-30] MEDS: -LIDODERM PATCH NOTE- MISC SCH (21:02)
[2021-10-01] MEDS: BuPROPion HCL 150 MG SR TABLET PO SCH (08:42)
[2021-10-01] MEDS: LIDOCAINE 5% TRANSDERMAL PATCH TD SCH (09:00)
[2021-10-01 09:52] VITALS: BP 128/74
[2021-10-01 16:26] VITALS: BP 115/64
[2021-10-01] MEDS: ACETAMINOPHEN 325 MG TABLET PO PRN (19:00)
[2021-10-01] MEDS: LORazepam 2 MG TABLET PO PRN ×2 (19:00→23:51)
[2021-10-01] MEDS: -LIDODERM PATCH NOTE- MISC SCH (21:00)
[2021-10-01] MEDS: IBUPROFEN 600 MG TABLET PO PRN (21:01)
[2021-10-01] MEDS: ZOLPIDEM TARTRATE 10 MG TABLET PO PRN (23:52)
[2021-10-02 00:44] VITALS: BP 147/78
[2021-10-02] MEDS: BuPROPion HCL 150 MG SR TABLET PO SCH (08:15)
[2021-10-02] MEDS: LIDOCAINE 5% TRANSDERMAL PATCH TD SCH (08:16)
[2021-10-02 08:36] VITALS: BP 137/72
[2021-10-02] MEDS: LORazepam 2 MG TABLET PO PRN ×2 (10:18→20:31)
[2021-10-02 16:26] VITALS: BP 140/65
[2021-10-02] MEDS: -LIDODERM PATCH NOTE- MISC SCH (20:28)
[2021-10-02] MEDS: IBUPROFEN 600 MG TABLET PO PRN (20:31)
[2021-10-02] MEDS: ZOLPIDEM TARTRATE 10 MG TABLET PO PRN (20:31)
[2021-10-03 01:23] VITALS: BP 151/81
[2021-10-03] MEDS: LORazepam 2 MG TABLET PO PRN (03:34)
[2021-10-03] MEDS: IBUPROFEN 600 MG TABLET PO PRN (03:35)
[2021-10-03 04:21] VITALS: BP 123/78
[2021-10-03] MEDS ORDERED: LIDOCAINE 5% TRANSDERMAL PATCH TD ONE (06:00)
[2021-10-03] MEDS ORDERED: LIDO700A15 TP ×2 (06:37→06:39)
== END 2021-10-03 07:00 | disposition home or self-care (01) | DRG 750 ==
LOC: B3A 09-28 03:30
PROVIDERS: ADMIT Psychiatry & Neurology Psychiatry; ATTEND Psychiatry & Neurology Psychiatry
DX: F20.9 Schizophrenia, unspecified (principal); F19.10 Other psychoactive substance abuse, uncomplicated; F32.9 Major depressive disorder, single episode, unspecified; F41.9 Anxiety disorder, unspecified; G47.00 Insomnia, unspecified; I10 Essential (primary) hypertension; J44.9 Chronic obstructive pulmonary disease, unspecified; K59.00 Constipation, unspecified; Z72.0 Tobacco use; Z71.6 Tobacco abuse counseling; Z88.0 Allergy status to penicillin; Z88.8 Allergy status to other drugs, medicaments and biological substances
CPT/HCPCS: 80053; 80061; 84439; 84443; 85025; 87081; 90732

== ENCOUNTER 2021-10-03 17:56 | Emergency (ER) | payer MEDICAID ==
[~2021-10-03] VITALS: Ht 188 cm; Wt 108.0 kg
[~2021-10-03 17:56] MED LIST changes: +LIDO700A15 TP
[2021-10-03 18:55] VITALS: BP 132/70
[2021-10-03 19:22] LABS: BASOPHILS % (AUTO) 0.5 % (0.0-2.0); EOSINOPHILS % (AUTO) 1.3 % (1.0-6.0); HEMATOCRIT 40.3 % (41-53); HEMOGLOBIN 13.8 g/dL (13.5-17.5); LYMPHOCYTES # (AUTO) 1.1 K/uL (1.0-4.8); LYMPHOCYTES % (AUTO) 9.9 % (22.0-44.0); MEAN CORPUSCULAR HEMOGLOBIN 32.7 pg (26.0-34.0); MEAN CORPUSCULAR HGB CONC 34.3 G/dL (31.0-37.0); MEAN CORPUSCULAR VOLUME 95 fL (80-100); MONOCYTES # (AUTO) 0.6 K/uL (0.1-1.0); MONOCYTES % (AUTO) 5.8 % (2.0-9.0); NEUTROPHILS # (AUTO) 8.8 K/uL (1.8-7.7); NEUTROPHILS % (AUTO) 82.5 % (40.0-70.0); PLATELET COUNT (AUTO) 421 K/uL (150-450); RED BLOOD CELL COUNT(AUTO) 4.23 MIL/uL (4.50-5.90); RED CELL DISTRIBUTION WIDTH 14.1 % (11.5-14.5)
[2021-10-03 19:32] LABS: ANION GAP 3 mmol/L (8-16); CALCIUM, TOTAL 9.2 mg/dL (8.8-10.5); CARBON DIOXIDE 32 mmol/L (22-29); CHLORIDE 97 mmol/L (98-107); CREATININE 0.74 mg/dL (0.60-1.30); GLOMERULAR FILTR. RATE CALC > 60 mL/min (>60); GLUCOSE,RANDOM 99 mg/dL (70-110); POTASSIUM 4.1 mmol/L (3.5-5.1); SODIUM SERUM 132 mmol/L (136-145); UREA NITROGEN, BLOOD 15 mg/dL (7-18)
[2021-10-03 19:37] LABS: ALANINE AMINOTRANSFERASE 42 U/L (12-78); ALBUMIN 3.5 g/dL (3.4-5.0); ALKALINE PHOSPHATASE 170 U/L (46-116); ASPARTATE AMINOTRANSFERASE 37 U/L (15-37); BILIRUBIN,TOTAL 0.3 mg/dL (0.1-1.0); TOTAL PROTEIN, SERUM 7.5 g/dL (6.4-8.2)
[2021-10-03] MEDS ORDERED: LIDOCAINE 5% TRANSDERMAL PATCH TD ONE (20:15)
[2021-10-03] MEDS ORDERED: KETOROLAC TROMETHAMINE 30 MG/ML VIAL IM ONE (20:15)
== END 2021-10-03 22:13 | disposition home or self-care (01) ==
LOC: EMS 17:56
DX: G89.29 Other chronic pain (principal); M25.552 Pain in left hip; Z98.890 Other specified postprocedural states
CPT/HCPCS: 36415; 72170; 80053; 85025; 96372; 99284; G0480; J1885

== ENCOUNTER 2021-10-03 22:39 | Emergency (ER) | payer MEDICAID ==
[~2021-10-03] VITALS: Ht 185.4 cm; Wt 77.0 kg
[2021-10-03 23:18] VITALS: BP 137/62
[2021-10-03] MEDS ORDERED: HYDROCODONE/ACETAMINOPHEN 5-325 MG TABLET PO ONE (23:30)
== END 2021-10-04 00:21 | disposition home or self-care (01) ==
LOC: EMS 22:41
DX: G89.29 Other chronic pain (principal); M25.552 Pain in left hip; R45.851 Suicidal ideations; Z98.890 Other specified postprocedural states; Z59.00 Homelessness unspecified
CPT/HCPCS: 99283; 99284

== ENCOUNTER 2021-10-04 08:00 | Inpatient (IN) | payer MEDICAID ==
[~2021-10-04] VITALS: Ht 172.7 cm; Wt 77.2 kg
[2021-10-04 08:35] LABS: BASOPHILS % (AUTO) 0.5 % (0.0-2.0); EOSINOPHILS % (AUTO) 0.6 % (1.0-6.0); HEMATOCRIT 38.8 % (41-53); HEMOGLOBIN 13.3 g/dL (13.5-17.5); LYMPHOCYTES # (AUTO) 0.8 K/uL (1.0-4.8); LYMPHOCYTES % (AUTO) 8.4 % (22.0-44.0); MEAN CORPUSCULAR HEMOGLOBIN 32.5 pg (26.0-34.0); MEAN CORPUSCULAR HGB CONC 34.3 G/dL (31.0-37.0); MEAN CORPUSCULAR VOLUME 95 fL (80-100); MONOCYTES # (AUTO) 0.8 K/uL (0.1-1.0); NEUTROPHILS # (AUTO) 8.3 K/uL (1.8-7.7); NEUTROPHILS % (AUTO) 82.5 % (40.0-70.0); PLATELET COUNT (AUTO) 378 K/uL (150-450)
[2021-10-04 08:47] LABS: AMPHET/METH SCREEN,URINE POSITIVE (NEGATIVE); BARBITURATE SCREEN, URINE NEGATIVE (NEGATIVE); BENZODIAZEPINES SCREEN,URINE NEGATIVE (NEGATIVE); CANNABINOID SCREEN,URINE NEGATIVE (NEGATIVE); COCAINE SCREEN,URINE NEGATIVE (NEGATIVE); METHADONE SCREEN, URINE NEGATIVE (NEGATIVE); OPIATE SCREEN,URINE POSITIVE (NEGATIVE)
[2021-10-04 08:47] LABS: ANION GAP 4 mmol/L (8-16); CALCIUM, TOTAL 9.3 mg/dL (8.8-10.5); CARBON DIOXIDE 32 mmol/L (22-29); CHLORIDE 98 mmol/L (98-107); CREATININE 0.91 mg/dL (0.60-1.30); GLOMERULAR FILTR. RATE CALC > 60 mL/min (>60); GLUCOSE,RANDOM 97 mg/dL (70-110); POTASSIUM 4.7 mmol/L (3.5-5.1); SODIUM SERUM 134 mmol/L (136-145); UREA NITROGEN, BLOOD 22 mg/dL (7-18)
[2021-10-04 08:48] LABS: PHENCYCLIDINE SCREEN,URINE NEGATIVE (NEGATIVE)
[2021-10-04 09:00] LABS: ALANINE AMINOTRANSFERASE 41 U/L (12-78); ALBUMIN 3.2 g/dL (3.4-5.0); ALKALINE PHOSPHATASE 170 U/L (46-116); ASPARTATE AMINOTRANSFERASE 39 U/L (15-37); BILIRUBIN,TOTAL 0.5 mg/dL (0.1-1.0); TOTAL PROTEIN, SERUM 6.9 g/dL (6.4-8.2)
[2021-10-04] MEDS: LORazepam 2 MG TABLET PO PRN ×2 (11:21→19:18)
[2021-10-04] MEDS: HALOPERIDOL 5 MG TABLET PO PRN ×2 (11:21→19:18)
[2021-10-04 11:24] LABS: COVID AG,FIA SOURCE NASOPHARYNGEAL
[2021-10-04 21:12] VITALS: BP 124/67
[2021-10-04] MEDS ORDERED: PNEUMOCOCCAL VACCINE POLYVALENT 0.5 ML VIAL [PPSV23] IM. ONE (21:45)
[2021-10-04] MEDS ORDERED: INFLUENZA VIRUS VACCINE QVS 2021-22 (6MO+)/PF 60 MCG/0.5 ML SYRINGE IM. ONE (21:45)
[2021-10-05] MEDS: LORazepam 2 MG TABLET PO PRN ×2 (03:13→19:05)
[2021-10-05] MEDS: HALOPERIDOL 5 MG TABLET PO PRN (03:13)
[2021-10-05 05:48] VITALS: BP 122/62
[2021-10-05 08:42] VITALS: BP 160/75
[2021-10-05] MEDS: BuPROPion HCL 150 MG SR TABLET PO SCH (09:49)
[2021-10-05 16:21] VITALS: BP 110/72
[2021-10-05] MEDS: IBUPROFEN 600 MG TABLET PO PRN (19:10)
[2021-10-05] MEDS ORDERED: ONDANSETRON HCL 4 MG TABLET PO PRN (20:00)
[2021-10-05] MEDS ORDERED: ALBUTEROL SULFATE HFA 90 MCG/PUFF 8 GM INHALER IH PRN (20:00)
[2021-10-05] MEDS ORDERED: PETROLATUM,WHITE 28 GM JELLY TP PRN (20:00)
[2021-10-05] MEDS ORDERED: BENZOCAINE/MENTHOL LOZENGE PO PRN (20:00)
[2021-10-05] MEDS ORDERED: ACETAMINOPHEN 325 MG TABLET PO PRN (20:00)
[2021-10-05] MEDS ORDERED: MAG HYDROX/AL HYDROX/SIMETH ES 30 ML SUSPENSION UDCUP PO PRN (20:00)
[2021-10-05] MEDS ORDERED: MAGNESIUM HYDROXIDE SUSPENSION 30 ML UDCUP PO PRN (20:00)
[2021-10-05] MEDS ORDERED: BACITRACIN 28 GM OINTMENT TP PRN (20:00)
[2021-10-05] MEDS ORDERED: LOPERAMIDE HCL 2 MG CAPSULE PO PRN (20:00)
[2021-10-05] MEDS ORDERED: CloNIDine HCL 0.1 MG TABLET PO PRN (20:00)
[2021-10-05] MEDS: -LIDODERM PATCH NOTE- MISC SCH (20:41)
[2021-10-05] MEDS: ZOLPIDEM TARTRATE 10 MG TABLET PO PRN (20:55)
[2021-10-06] MEDS: LORazepam 2 MG TABLET PO PRN ×3 (04:34→18:57)
[2021-10-06 04:35] VITALS: BP 130/81
[2021-10-06] MEDS: IBUPROFEN 600 MG TABLET PO PRN ×4 (04:35→21:00)
[2021-10-06 08:51] VITALS: BP 154/70
[2021-10-06] MEDS: BuPROPion HCL 150 MG SR TABLET PO SCH (08:58)
[2021-10-06] MEDS: OMEPRAZOLE 20 MG CAPSULE PO SCH (08:58)
[2021-10-06] MEDS: DOCUSATE SODIUM 100 MG CAPSULE PO SCH (08:58)
[2021-10-06 16:24] VITALS: BP 125/65
[2021-10-06] MEDS: ZOLPIDEM TARTRATE 10 MG TABLET PO PRN (21:00)
[2021-10-06] MEDS: -LIDODERM PATCH NOTE- MISC SCH (21:02)
[2021-10-07] MEDS: LORazepam 2 MG TABLET PO PRN (03:12)
[2021-10-07] MEDS: IBUPROFEN 600 MG TABLET PO PRN (03:12)
[2021-10-07] MEDS: OMEPRAZOLE 20 MG CAPSULE PO SCH (08:02)
[2021-10-07] MEDS: BuPROPion HCL 150 MG SR TABLET PO SCH (08:02)
[2021-10-07] MEDS: DOCUSATE SODIUM 100 MG CAPSULE PO SCH (08:02)
[2021-10-07 08:22] VITALS: BP 140/75
== END 2021-10-07 20:47 | disposition home or self-care (01) | DRG 750 ==
LOC: EMS 08:04 → B3A 19:00
PROVIDERS: ADMIT Psychiatry & Neurology Psychiatry; ATTEND Psychiatry & Neurology Psychiatry
DX: F25.9 Schizoaffective disorder, unspecified (principal); F17.200 Nicotine dependence, unspecified, uncomplicated; F41.9 Anxiety disorder, unspecified; G47.00 Insomnia, unspecified; I10 Essential (primary) hypertension; J44.9 Chronic obstructive pulmonary disease, unspecified; Z20.822 Contact with and (suspected) exposure to COVID-19; K59.00 Constipation, unspecified; F32.A Depression, unspecified; M19.90 Unspecified osteoarthritis, unspecified site; F19.10 Other psychoactive substance abuse, uncomplicated; G89.29 Other chronic pain; Z88.6 Allergy status to analgesic agent; Z88.0 Allergy status to penicillin; Z72.89 Other problems related to lifestyle; Z71.6 Tobacco abuse counseling; Z28.9 Immunization not carried out for unspecified reason
CPT/HCPCS: 80053; 85025; 87081; 99285; G0480

== ENCOUNTER 2021-11-05 22:56 | Emergency (ER) | payer MEDICAID ==
[~2021-11-05] VITALS: Ht 180.3 cm; Wt 80.0 kg
[2021-11-05 23:56] VITALS: BP 130/84
[2021-11-06] MEDS ORDERED: GABA-1181 PO (00:27)
[2021-11-06] MEDS ORDERED: ACETAMINOPHEN 500 MG TABLET PO ONE (04:45)
== END 2021-11-06 07:45 | disposition home or self-care (01) ==
LOC: EMS 22:57
DX: G89.29 Other chronic pain (principal); M25.552 Pain in left hip; J44.9 Chronic obstructive pulmonary disease, unspecified; F20.9 Schizophrenia, unspecified; Z88.0 Allergy status to penicillin
CPT/HCPCS: 73503; 73552; 99284

== ENCOUNTER 2022-05-27 08:01 | Emergency (ER) | payer MEDICAID ==
[~2022-05-27] VITALS: Ht 185.4 cm; Wt 77.3 kg
[~2022-05-27 08:01] MED LIST changes: +BUPR-72 PO; -BUPR150SR PO; +GABA-1181 PO
[2022-05-27] MEDS ORDERED: OLAN7.5T22 PO (08:15)
[2022-05-27 09:02] LABS: BASOPHILS % (AUTO) 0.4 % (0.0-2.0); EOSINOPHILS % (AUTO) 1.4 % (1.0-6.0); HEMATOCRIT 34.2 % (41-53); HEMOGLOBIN 11.9 g/dL (13.5-17.5); LYMPHOCYTES # (AUTO) 1.4 K/uL (1.0-4.8); LYMPHOCYTES % (AUTO) 19.7 % (22.0-44.0); MEAN CORPUSCULAR HEMOGLOBIN 31.6 pg (26.0-34.0); MEAN CORPUSCULAR HGB CONC 34.8 G/dL (31.0-37.0); MEAN CORPUSCULAR VOLUME 91 fL (80-100); MONOCYTES # (AUTO) 0.7 K/uL (0.1-1.0); MONOCYTES % (AUTO) 9.5 % (2.0-9.0); PLATELET COUNT (AUTO) 189 K/uL (150-450); RED BLOOD CELL COUNT(AUTO) 3.77 MIL/uL (4.50-5.90); RED CELL DISTRIBUTION WIDTH 13.1 % (11.5-14.5)
[2022-05-27 09:11] LABS: ANION GAP 11 mmol/L (8-16); CALCIUM, TOTAL 8.7 mg/dL (8.8-10.5); CARBON DIOXIDE 26 mmol/L (22-29); CHLORIDE 99 mmol/L (98-107); GLOMERULAR FILTR. RATE CALC > 60 mL/min (>60); GLUCOSE,RANDOM 86 mg/dL (70-110); POTASSIUM 3.3 mmol/L (3.5-5.1); SODIUM SERUM 136 mmol/L (136-145); UREA NITROGEN, BLOOD 18 mg/dL (7-18)
[2022-05-27 09:17] LABS: ALANINE AMINOTRANSFERASE 66 U/L (12-78); ALBUMIN 3.3 g/dL (3.4-5.0); ALKALINE PHOSPHATASE 101 U/L (46-116); ASPARTATE AMINOTRANSFERASE 41 U/L (15-37); BILIRUBIN,TOTAL 0.7 mg/dL (0.1-1.0); TOTAL PROTEIN, SERUM 6.3 g/dL (6.4-8.2)
[2022-05-27 10:06] LABS: COVID AG,FIA SOURCE NASAL SWAB
[2022-05-27 10:40] VITALS: BP 108/60
== END 2022-05-27 10:46 | disposition home or self-care (01) ==
LOC: EMS 08:02
DX: F20.9 Schizophrenia, unspecified (principal); Z20.822 Contact with and (suspected) exposure to COVID-19; J44.9 Chronic obstructive pulmonary disease, unspecified; Z88.0 Allergy status to penicillin; Z98.890 Other specified postprocedural states; Z86.69 Personal history of other diseases of the nervous system and sense organs; F10.20 Alcohol dependence, uncomplicated; F17.210 Nicotine dependence, cigarettes, uncomplicated
CPT/HCPCS: 99283; 87426; 80053; 85025; 36415; G0480; C9803; 99284

== ENCOUNTER 2022-11-04 04:42 | Emergency (ER) | payer MEDICAID ==
[~2022-11-04] VITALS: Ht 182.9 cm; Wt 77.3 kg
[~2022-11-04 04:42] MED LIST changes: +OLAN7.5T22 PO
[2022-11-04] MEDS ORDERED: LIDOCAINE 5% TRANSDERMAL PATCH TD ONE (05:30)
[2022-11-04] MEDS ORDERED: OLANZapine 5 MG TABLET PO ONE (05:30)
[2022-11-04] MEDS ORDERED: GABAPENTIN 300 MG CAPSULE PO ONE (05:30)
[2022-11-04] MEDS ORDERED: IBUPROFEN 600 MG TABLET PO ONE (05:30)
[2022-11-04] MEDS ORDERED: BuPROPion HCL 150 MG SR TABLET PO ONE (05:30)
[2022-11-04] MEDS ORDERED: OLAN7.5T22 PO ×2 (05:33→06:00)
[2022-11-04] MEDS ORDERED: BUPR-72 PO ×2 (05:33→06:00)
[2022-11-04] MEDS ORDERED: ALBU8HFA IH ×2 (05:33→06:00)
[2022-11-04] MEDS ORDERED: LIDO700A15 TP ×2 (05:33→06:00)
[2022-11-04] MEDS ORDERED: TAMS-13 PO ×2 (05:33→06:00)
[2022-11-04] MEDS ORDERED: GABA-1181 PO ×2 (05:33→06:00)
[2022-11-04] MEDS ORDERED: IBUP-1554 PO ×2 (05:33→06:00)
[2022-11-04 05:48] LABS: BASOPHILS % (AUTO) 0.4 % (0.0-2.0); EOSINOPHILS % (AUTO) 0.5 % (1.0-6.0); HEMOGLOBIN 13.6 g/dL (13.5-17.5); LYMPHOCYTES # (AUTO) 0.9 K/uL (1.0-4.8); LYMPHOCYTES % (AUTO) 10.3 % (22.0-44.0); MEAN CORPUSCULAR HEMOGLOBIN 31.8 pg (26.0-34.0); MEAN CORPUSCULAR HGB CONC 34.1 G/dL (31.0-37.0); MEAN CORPUSCULAR VOLUME 93 fL (80-100); MONOCYTES # (AUTO) 0.6 K/uL (0.1-1.0); MONOCYTES % (AUTO) 7.2 % (2.0-9.0); NEUTROPHILS # (AUTO) 7.3 K/uL (1.8-7.7); NEUTROPHILS % (AUTO) 81.6 % (40.0-70.0); PLATELET COUNT (AUTO) 214 K/uL (150-450); RED BLOOD CELL COUNT(AUTO) 4.29 MIL/uL (4.50-5.90); RED CELL DISTRIBUTION WIDTH 13.2 % (11.5-14.5)
[2022-11-04 05:56] LABS: ANION GAP 8 mmol/L (8-16); CALCIUM, TOTAL 8.9 mg/dL (8.8-10.5); CARBON DIOXIDE 30 mmol/L (22-29); CHLORIDE 100 mmol/L (98-107); CREATININE 0.97 mg/dL (0.60-1.30); GLUCOSE,RANDOM 106 mg/dL (70-110); POTASSIUM 4.1 mmol/L (3.5-5.1); SODIUM SERUM 138 mmol/L (136-145); UREA NITROGEN, BLOOD 16 mg/dL (7-18)
[2022-11-04 05:59] LABS: GLOMERULAR FILTR. RATE CALC > 60 mL/min (>60)
[2022-11-04 06:02] LABS: ALANINE AMINOTRANSFERASE 50 U/L (12-78); ALBUMIN 3.8 g/dL (3.4-5.0); ALKALINE PHOSPHATASE 105 U/L (46-116); ASPARTATE AMINOTRANSFERASE 52 U/L (15-37); BILIRUBIN,TOTAL 0.9 mg/dL (0.1-1.0); TOTAL PROTEIN, SERUM 7.4 g/dL (6.4-8.2)
[2022-11-04 06:34] LABS: COVID AG,FIA SOURCE NASAL SWAB
[2022-11-04 06:39] VITALS: BP 151/96
== END 2022-11-04 09:45 | disposition home or self-care (01) ==
LOC: EMS 04:43
DX: F20.0 Paranoid schizophrenia (principal); J44.9 Chronic obstructive pulmonary disease, unspecified; G89.4 Chronic pain syndrome; N40.0 Benign prostatic hyperplasia without lower urinary tract symptoms; M25.552 Pain in left hip; G62.9 Polyneuropathy, unspecified; F17.210 Nicotine dependence, cigarettes, uncomplicated; F12.90 Cannabis use, unspecified, uncomplicated; Z98.890 Other specified postprocedural states; Z20.822 Contact with and (suspected) exposure to COVID-19
CPT/HCPCS: 99284; 87426; 80053; 85025; 36415; G0480

== ENCOUNTER 2022-11-04 16:14 | Emergency (ER) | payer MEDICAID ==
[~2022-11-04] VITALS: Ht 185.4 cm; Wt 81.8 kg
[~2022-11-04 16:14] MED LIST changes: +ALBU8HFA IH; +IBUP-1554 PO; +TAMS-13 PO
[2022-11-04] MEDS ORDERED: IBUPROFEN 600 MG TABLET PO ONE (17:30)
[2022-11-04 20:00] VITALS: BP 133/75
== END 2022-11-04 23:07 | disposition home or self-care (01) ==
LOC: EMS 16:20
DX: G89.29 Other chronic pain (principal); M25.552 Pain in left hip; J44.9 Chronic obstructive pulmonary disease, unspecified; F20.9 Schizophrenia, unspecified; G62.9 Polyneuropathy, unspecified; F17.210 Nicotine dependence, cigarettes, uncomplicated; F12.90 Cannabis use, unspecified, uncomplicated; Z98.890 Other specified postprocedural states; Z88.0 Allergy status to penicillin; Z88.5 Allergy status to narcotic agent; Z99.3 Dependence on wheelchair
CPT/HCPCS: 73503; 99283

== ENCOUNTER 2022-11-05 02:15 | Emergency (ER) | payer MEDICAID ==
[~2022-11-05] VITALS: Ht 185.4 cm; Wt 81.8 kg
[2022-11-05] MEDS ORDERED: OLANZapine 5 MG RAPDIS TABLET PO ONE (02:45)
[2022-11-05] MEDS ORDERED: LORazepam 2 MG TABLET PO ONE (02:45)
[2022-11-05 03:12] LABS: BASOPHILS % (AUTO) 0.5 % (0.0-2.0); EOSINOPHILS % (AUTO) 2.7 % (1.0-6.0); HEMOGLOBIN 13.8 g/dL (13.5-17.5); LYMPHOCYTES # (AUTO) 1.2 K/uL (1.0-4.8); LYMPHOCYTES % (AUTO) 13.1 % (22.0-44.0); MEAN CORPUSCULAR HEMOGLOBIN 30.8 pg (26.0-34.0); MEAN CORPUSCULAR HGB CONC 32.8 G/dL (31.0-37.0); MEAN CORPUSCULAR VOLUME 94 fL (80-100); MONOCYTES # (AUTO) 0.7 K/uL (0.1-1.0); MONOCYTES % (AUTO) 8.1 % (2.0-9.0); NEUTROPHILS # (AUTO) 6.7 K/uL (1.8-7.7); NEUTROPHILS % (AUTO) 75.6 % (40.0-70.0); PLATELET COUNT (AUTO) 207 K/uL (150-450); RED BLOOD CELL COUNT(AUTO) 4.48 MIL/uL (4.50-5.90); RED CELL DISTRIBUTION WIDTH 13.2 % (11.5-14.5)
[2022-11-05 03:19] LABS: ANION GAP 10 mmol/L (8-16); CARBON DIOXIDE 30 mmol/L (22-29); CHLORIDE 97 mmol/L (98-107); CREATININE 1.03 mg/dL (0.60-1.30); GLUCOSE,RANDOM 108 mg/dL (70-110); POTASSIUM 3.7 mmol/L (3.5-5.1); SODIUM SERUM 137 mmol/L (136-145); UREA NITROGEN, BLOOD 14 mg/dL (7-18)
[2022-11-05 03:24] LABS: ALANINE AMINOTRANSFERASE 56 U/L (12-78); ALKALINE PHOSPHATASE 107 U/L (46-116); ASPARTATE AMINOTRANSFERASE 57 U/L (15-37); TOTAL PROTEIN, SERUM 7.6 g/dL (6.4-8.2)
[2022-11-05 03:25] LABS: GLOMERULAR FILTR. RATE CALC > 60 mL/min (>60)
[2022-11-05 06:04] VITALS: BP 161/93
== END 2022-11-05 06:47 | disposition home or self-care (01) ==
LOC: EMS 02:16
DX: F20.9 Schizophrenia, unspecified (principal); J44.0 Chronic obstructive pulmonary disease with (acute) lower respiratory infection; G89.29 Other chronic pain; M25.552 Pain in left hip; G62.9 Polyneuropathy, unspecified; F17.210 Nicotine dependence, cigarettes, uncomplicated; F12.90 Cannabis use, unspecified, uncomplicated; Z88.0 Allergy status to penicillin; Z88.5 Allergy status to narcotic agent
CPT/HCPCS: 99284; 80053; 85025; 36415; G0480

== ENCOUNTER 2022-11-05 22:57 | Inpatient (IN) | payer MEDICAID ==
[~2022-11-05] VITALS: Ht 185.4 cm; Wt 81.6 kg
[2022-11-05 23:42] LABS: ANION GAP 6 mmol/L (8-16); BASOPHILS % (AUTO) 0.4 % (0.0-2.0); CARBON DIOXIDE 32 mmol/L (22-29); CHLORIDE 99 mmol/L (98-107); CREATININE 1.12 mg/dL (0.60-1.30); EOSINOPHILS % (AUTO) 1.1 % (1.0-6.0); GLUCOSE,RANDOM 90 mg/dL (70-110); HEMATOCRIT 39.4 % (41-53); HEMOGLOBIN 13.1 g/dL (13.5-17.5); LYMPHOCYTES % (AUTO) 12.5 % (22.0-44.0); MEAN CORPUSCULAR HEMOGLOBIN 31.1 pg (26.0-34.0); MEAN CORPUSCULAR HGB CONC 33.3 G/dL (31.0-37.0); MEAN CORPUSCULAR VOLUME 94 fL (80-100); MONOCYTES # (AUTO) 0.6 K/uL (0.1-1.0); MONOCYTES % (AUTO) 7.9 % (2.0-9.0); NEUTROPHILS # (AUTO) 6.2 K/uL (1.8-7.7); NEUTROPHILS % (AUTO) 78.1 % (40.0-70.0); PLATELET COUNT (AUTO) 205 K/uL (150-450); POTASSIUM 4.3 mmol/L (3.5-5.1); RED BLOOD CELL COUNT(AUTO) 4.21 MIL/uL (4.50-5.90); RED CELL DISTRIBUTION WIDTH 12.8 % (11.5-14.5); SODIUM SERUM 137 mmol/L (136-145); UREA NITROGEN, BLOOD 12 mg/dL (7-18)
[2022-11-05 23:47] LABS: ALANINE AMINOTRANSFERASE 52 U/L (12-78); ALBUMIN 3.8 g/dL (3.4-5.0); ALKALINE PHOSPHATASE 97 U/L (46-116); ASPARTATE AMINOTRANSFERASE 51 U/L (15-37); BILIRUBIN,TOTAL 0.9 mg/dL (0.1-1.0); GLOMERULAR FILTR. RATE CALC > 60 mL/min (>60); TOTAL PROTEIN, SERUM 7.3 g/dL (6.4-8.2)
[2022-11-06 00:21] LABS: COVID AG,FIA SOURCE NASAL SWAB
[2022-11-06] MEDS ORDERED: ZOLPIDEM TARTRATE 10 MG TABLET PO PRN (06:15)
[2022-11-06] MEDS ORDERED: HALOPERIDOL 5 MG TABLET PO PRN (06:15)
[2022-11-06 06:30] LABS: APPEARANCE,URINE CLEAR (CLEAR); BILIRUBIN,URINE NEGATIVE (NEGATIVE); GLUCOSE, URINE (UA) NEGATIVE (NEGATIVE); KETONES,URINE NEGATIVE (NEGATIVE); LEUKOCYTE ESTERASE ,URINE NEGATIVE (NEGATIVE); NITRATE,URINE NEGATIVE (NEGATIVE); OCCULT BLOOD,URINE NEGATIVE (NEGATIVE); PH,URINE 6.5 (5.0-8.0); PROTEIN,URINE NEGATIVE (NEGATIVE); SPECIFIC GRAVITIY, URINE 1.006 (1.003-1.030); UROBILINOGEN,URINE <=1.0 mg/dL (<=1.0)
[2022-11-06 06:36] LABS: AMPHET/METH SCREEN,URINE POSITIVE (NEGATIVE); BARBITURATE SCREEN, URINE NEGATIVE (NEGATIVE); BENZODIAZEPINES SCREEN,URINE NEGATIVE (NEGATIVE); CANNABINOID SCREEN,URINE NEGATIVE (NEGATIVE); COCAINE SCREEN,URINE NEGATIVE (NEGATIVE); METHADONE SCREEN, URINE NEGATIVE (NEGATIVE); OPIATE SCREEN,URINE NEGATIVE (NEGATIVE)
[2022-11-06 06:45] LABS: PHENCYCLIDINE SCREEN,URINE NEGATIVE (NEGATIVE)
[2022-11-06] MEDS ORDERED: PNEUMOCOCCAL VACCINE POLYVALENT 0.5 ML VIAL [PPSV23] IM. ONE (20:00)
[2022-11-06] MEDS ORDERED: INFLUENZA VIRUS VACCINE QVS 2022-23 (6MO+)/PF 60 MCG/0.5 ML SYRINGE IM. ONE (20:00)
[2022-11-06] MEDS: LORazepam 2 MG TABLET PO PRN (20:35)
[2022-11-06] MEDS ORDERED: MAG HYDROX/AL HYDROX/SIMETH ES 30 ML SUSPENSION UDCUP PO PRN (20:45)
[2022-11-06] MEDS ORDERED: CloNIDine HCL 0.1 MG TABLET PO PRN (20:45)
[2022-11-06] MEDS ORDERED: PETROLATUM,WHITE 28 GM JELLY TP PRN (20:45)
[2022-11-06] MEDS ORDERED: DOCUSATE SODIUM 100 MG CAPSULE PO PRN (20:45)
[2022-11-06] MEDS ORDERED: ONDANSETRON HCL 4 MG TABLET PO PRN (20:45)
[2022-11-06] MEDS ORDERED: MAGNESIUM HYDROXIDE SUSPENSION 30 ML UDCUP PO PRN (20:45)
[2022-11-06] MEDS ORDERED: ACETAMINOPHEN 325 MG TABLET PO PRN (20:45)
[2022-11-06] MEDS ORDERED: GuaiFENesin/D-METHORPHAN [SUGAR-FREE] 200-20MG/10 ML SYRUP UDCUP PO PRN (20:45)
[2022-11-06] MEDS ORDERED: ALBUTEROL SULFATE HFA 90 MCG/PUFF 8 GM INHALER IH PRN (20:45)
[2022-11-06] MEDS ORDERED: LOPERAMIDE HCL 2 MG CAPSULE PO PRN (20:45)
[2022-11-06 21:27] VITALS: BP 139/82
[2022-11-06 21:56] VITALS: BP 124/78
[2022-11-07 08:17] VITALS: BP 138/61
[2022-11-07] MEDS: TAMSULOSIN HCL 0.4 MG CAPSULE PO SCH (10:00)
[2022-11-07] MEDS: BuPROPion HCL 150 MG SR TABLET PO SCH (18:11)
[2022-11-07] MEDS: GABAPENTIN 300 MG CAPSULE PO SCH (18:11)
[2022-11-07] MEDS: LORazepam 2 MG TABLET PO PRN (18:15)
[2022-11-07 20:10] VITALS: BP 132/77
[2022-11-07] MEDS ORDERED: OLANZapine 10 MG TABLET PO SCH (21:00)
[2022-11-08 08:09] VITALS: BP 129/78
[2022-11-08] MEDS: TAMSULOSIN HCL 0.4 MG CAPSULE PO SCH (08:18)
[2022-11-08] MEDS: GABAPENTIN 300 MG CAPSULE PO SCH (08:19)
[2022-11-08] MEDS: BuPROPion HCL 150 MG SR TABLET PO SCH (08:19)
[2022-11-08] MEDS ORDERED: OLAN10TA74 PO (10:40)
[2022-11-08] MEDS ORDERED: OLAN10 PO (11:01)
[2022-11-08] MEDS ORDERED: GABA-1181 PO (11:01)
[2022-11-08] MEDS ORDERED: BUPR-113 PO (11:01)
== END 2022-11-08 13:00 | disposition home or self-care (01) | DRG 750 ==
LOC: EMS 23:05 → 3EI 11-06 06:24 → B3A 11-06 20:10
PROVIDERS: ADMIT Psychiatry & Neurology Child & Adolescent Psychiatry; ATTEND Psychiatry & Neurology Child & Adolescent Psychiatry
DX: F20.9 Schizophrenia, unspecified (principal); D64.9 Anemia, unspecified; E11.9 Type 2 diabetes mellitus without complications; F41.9 Anxiety disorder, unspecified; G89.29 Other chronic pain; G62.9 Polyneuropathy, unspecified; J44.9 Chronic obstructive pulmonary disease, unspecified; N40.0 Benign prostatic hyperplasia without lower urinary tract symptoms; Z20.822 Contact with and (suspected) exposure to COVID-19; Z79.899 Other long term (current) drug therapy; Z91.199 Patient's noncompliance with other medical treatment and regimen due to unspecified reason; Z87.891 Personal history of nicotine dependence; Z88.0 Allergy status to penicillin; Z88.8 Allergy status to other drugs, medicaments and biological substances
CPT/HCPCS: 80053; 80307; 81003; 85025; 99285; G0480

== ENCOUNTER 2022-11-23 21:03 | Emergency (ER) | payer MEDICAID ==
[~2022-11-23] VITALS: Ht 185.4 cm; Wt 82.0 kg
[~2022-11-23 21:03] MED LIST changes: -ALBU8HFA IH; +BUPR-113 PO; -BUPR-72 PO; -IBUP-1554 PO; -LIDO700A15 TP; +OLAN10 PO; -OLAN7.5T22 PO
[2022-11-23 22:36] VITALS: BP 128/82
[2022-11-23] MEDS ORDERED: OLANZapine 5 MG RAPDIS TABLET PO ONE (23:15)
[2022-11-23] MEDS ORDERED: LORazepam 1 MG TABLET PO ONE (23:15)
[2022-11-23 23:26] LABS: BASOPHILS % (AUTO) 0.3 % (0.0-2.0); HEMATOCRIT 38.5 % (41-53); HEMOGLOBIN 12.6 g/dL (13.5-17.5); LYMPHOCYTES # (AUTO) 1.3 K/uL (1.0-4.8); LYMPHOCYTES % (AUTO) 13.2 % (22.0-44.0); MEAN CORPUSCULAR HEMOGLOBIN 31.1 pg (26.0-34.0); MEAN CORPUSCULAR HGB CONC 32.6 G/dL (31.0-37.0); MEAN CORPUSCULAR VOLUME 96 fL (80-100); MONOCYTES # (AUTO) 0.7 K/uL (0.1-1.0); MONOCYTES % (AUTO) 7.1 % (2.0-9.0); NEUTROPHILS # (AUTO) 7.7 K/uL (1.8-7.7); NEUTROPHILS % (AUTO) 78.4 % (40.0-70.0); PLATELET COUNT (AUTO) 321 K/uL (150-450); RED BLOOD CELL COUNT(AUTO) 4.03 MIL/uL (4.50-5.90); RED CELL DISTRIBUTION WIDTH 13.2 % (11.5-14.5)
[2022-11-23 23:48] LABS: ANION GAP 8 mmol/L (8-16); CALCIUM, TOTAL 8.8 mg/dL (8.8-10.5); CARBON DIOXIDE 29 mmol/L (22-29); CHLORIDE 97 mmol/L (98-107); CREATININE 1.21 mg/dL (0.60-1.30); GLUCOSE,RANDOM 94 mg/dL (70-110); POTASSIUM 4.2 mmol/L (3.5-5.1); SODIUM SERUM 134 mmol/L (136-145); UREA NITROGEN, BLOOD 17 mg/dL (7-18)
[2022-11-23 23:51] LABS: GLOMERULAR FILTR. RATE CALC 60 mL/min (>60)
[2022-11-23 23:54] LABS: ALANINE AMINOTRANSFERASE 46 U/L (12-78); ALBUMIN 3.7 g/dL (3.4-5.0); ALKALINE PHOSPHATASE 134 U/L (46-116); ASPARTATE AMINOTRANSFERASE 39 U/L (15-37); BILIRUBIN,TOTAL 0.5 mg/dL (0.1-1.0); TOTAL PROTEIN, SERUM 7.4 g/dL (6.4-8.2)
== END 2022-11-24 00:53 | disposition home or self-care (01) ==
LOC: EMS 21:04
DX: F20.0 Paranoid schizophrenia (principal); J44.9 Chronic obstructive pulmonary disease, unspecified; G89.29 Other chronic pain; M25.552 Pain in left hip; G62.9 Polyneuropathy, unspecified; F17.210 Nicotine dependence, cigarettes, uncomplicated; F12.90 Cannabis use, unspecified, uncomplicated; Z98.890 Other specified postprocedural states; Z88.0 Allergy status to penicillin; Z88.6 Allergy status to analgesic agent
CPT/HCPCS: 99284; 80053; 85025; 36415; G0480

== ENCOUNTER 2022-11-28 19:53 | Inpatient (IN) | payer MEDICAID ==
[~2022-11-28] VITALS: Ht 185.4 cm; Wt 88.4 kg
[2022-11-28 21:25] LABS: BASOPHILS % (AUTO) 0.4 % (0.0-2.0); EOSINOPHILS % (AUTO) 3.2 % (1.0-6.0); HEMATOCRIT 38.7 % (41-53); HEMOGLOBIN 12.8 g/dL (13.5-17.5); LYMPHOCYTES # (AUTO) 1.1 K/uL (1.0-4.8); LYMPHOCYTES % (AUTO) 15.1 % (22.0-44.0); MEAN CORPUSCULAR HEMOGLOBIN 31.5 pg (26.0-34.0); MEAN CORPUSCULAR HGB CONC 32.9 G/dL (31.0-37.0); MEAN CORPUSCULAR VOLUME 96 fL (80-100); MONOCYTES # (AUTO) 0.6 K/uL (0.1-1.0); MONOCYTES % (AUTO) 7.8 % (2.0-9.0); NEUTROPHILS # (AUTO) 5.4 K/uL (1.8-7.7); NEUTROPHILS % (AUTO) 73.5 % (40.0-70.0); PLATELET COUNT (AUTO) 311 K/uL (150-450); RED BLOOD CELL COUNT(AUTO) 4.05 MIL/uL (4.50-5.90); RED CELL DISTRIBUTION WIDTH 12.8 % (11.5-14.5)
[2022-11-28] MEDS ORDERED: LORazepam 2 MG TABLET PO ONE (21:30)
[2022-11-28] MEDS ORDERED: HALOPERIDOL 5 MG TABLET PO ONE (21:30)
[2022-11-28] MEDS ORDERED: DiphenhydrAMINE HCL 25 MG CAPSULE PO ONE (21:30)
[2022-11-28 21:41] LABS: ANION GAP 6 mmol/L (8-16); CALCIUM, TOTAL 8.9 mg/dL (8.8-10.5); CARBON DIOXIDE 30 mmol/L (22-29); CHLORIDE 102 mmol/L (98-107); CREATININE 1.07 mg/dL (0.60-1.30); GLOMERULAR FILTR. RATE CALC > 60 mL/min (>60); GLUCOSE,RANDOM 106 mg/dL (70-110); POTASSIUM 3.8 mmol/L (3.5-5.1); SODIUM SERUM 138 mmol/L (136-145); UREA NITROGEN, BLOOD 14 mg/dL (7-18)
[2022-11-28 21:47] LABS: ALANINE AMINOTRANSFERASE 38 U/L (12-78); ALBUMIN 3.5 g/dL (3.4-5.0); ALKALINE PHOSPHATASE 127 U/L (46-116); ASPARTATE AMINOTRANSFERASE 33 U/L (15-37); BILIRUBIN,TOTAL 0.3 mg/dL (0.1-1.0)
[2022-11-28 21:50] LABS: COVID AG,FIA SOURCE NASOPHARYNGEAL
[2022-11-28] MEDS ORDERED: HALOPERIDOL 5 MG TABLET PO PRN (22:00)
[2022-11-28] MEDS ORDERED: IBUP-1492 PO (22:01)
[2022-11-28] MEDS ORDERED: ALBU8HFA IH (22:03)
[2022-11-28] MEDS ORDERED: [UNRECOGNIZED DRUG - CODE] PO (22:03)
[2022-11-29 01:24] VITALS: BP 119/74
[2022-11-29 01:31] LABS: GLUCOMETER DEV NAME(LOC) BV3N.; GLUCOSE,POINT OF CARE 83 MG/DL (70-110)
[2022-11-29] MEDS: LORazepam 2 MG TABLET PO PRN (01:54)
[2022-11-29] MEDS: ZOLPIDEM TARTRATE 10 MG TABLET PO PRN (01:54)
[2022-11-29] MEDS ORDERED: INFLUENZA VIRUS VACCINE QVS 2022-23 (6MO+)/PF 60 MCG/0.5 ML SYRINGE IM. ONE (04:00)
[2022-11-29] MEDS ORDERED: PNEUMOCOCCAL VACCINE POLYVALENT 0.5 ML VIAL [PPSV23] IM. ONE (04:00)
[2022-11-29] MEDS: BuPROPion HCL 150 MG SR TABLET PO SCH ×2 (10:30→16:33)
[2022-11-29] MEDS: GABAPENTIN 300 MG CAPSULE PO SCH ×2 (10:30→16:33)
[2022-11-29] MEDS ORDERED: CloNIDine HCL 0.1 MG TABLET PO PRN (15:15)
[2022-11-29] MEDS ORDERED: ACETAMINOPHEN 325 MG TABLET PO PRN (15:15)
[2022-11-29] MEDS ORDERED: LOPERAMIDE HCL 2 MG CAPSULE PO PRN (15:15)
[2022-11-29] MEDS ORDERED: MAGNESIUM HYDROXIDE SUSPENSION 30 ML UDCUP PO PRN (15:15)
[2022-11-29] MEDS ORDERED: GuaiFENesin/D-METHORPHAN [SUGAR-FREE] 200-20MG/10 ML SYRUP UDCUP PO PRN (15:15)
[2022-11-29] MEDS ORDERED: MAG HYDROX/AL HYDROX/SIMETH ES 30 ML SUSPENSION UDCUP PO PRN (15:15)
[2022-11-29] MEDS ORDERED: NICOTINE 14 MG/24 HOUR PATCH TD PRN (15:15)
[2022-11-29] MEDS ORDERED: ONDANSETRON HCL 4 MG TABLET PO PRN (15:15)
[2022-11-29] MEDS ORDERED: ALBUTEROL SULFATE HFA 90 MCG/PUFF 8 GM INHALER IH PRN (15:15)
[2022-11-29] MEDS ORDERED: PETROLATUM,WHITE 28 GM JELLY TP PRN (15:15)
[2022-11-29] MEDS ORDERED: DOCUSATE SODIUM 100 MG CAPSULE PO PRN (15:15)
[2022-11-29] MEDS: OLANZapine 10 MG TABLET PO SCH (20:27)
[2022-11-29] MEDS: TAMSULOSIN HCL 0.4 MG CAPSULE PO SCH (20:27)
[2022-11-29 20:51] VITALS: BP 131/86
[2022-11-30] MEDS: LORazepam 2 MG TABLET PO PRN (00:22)
[2022-11-30] MEDS: ZOLPIDEM TARTRATE 10 MG TABLET PO PRN (00:22)
[2022-11-30] MEDS: GABAPENTIN 300 MG CAPSULE PO SCH ×2 (09:07→16:53)
[2022-11-30] MEDS: BuPROPion HCL 150 MG SR TABLET PO SCH ×2 (09:07→16:53)
[2022-11-30 09:43] VITALS: BP 122/63
[2022-11-30] MEDS: OLANZapine 10 MG TABLET PO SCH (20:15)
[2022-11-30] MEDS: TAMSULOSIN HCL 0.4 MG CAPSULE PO SCH (20:15)
[2022-11-30 20:27] VITALS: BP 137/64
[2022-12-01] MEDS: GABAPENTIN 300 MG CAPSULE PO SCH (09:00)
[2022-12-01] MEDS: BuPROPion HCL 150 MG SR TABLET PO SCH (09:00)
[2022-12-01 09:19] VITALS: BP 127/62
[2022-12-01] MEDS ORDERED: GABA-1181 PO (14:54)
[2022-12-01] MEDS ORDERED: OLAN10 PO (14:54)
[2022-12-01] MEDS ORDERED: BUPR-113 PO (14:54)
== END 2022-12-01 15:48 | disposition home or self-care (01) | DRG 750 ==
LOC: EMS 19:54 → B3A 22:53
PROVIDERS: ADMIT Psychiatry & Neurology Child & Adolescent Psychiatry; ATTEND Psychiatry & Neurology Child & Adolescent Psychiatry
DX: F20.0 Paranoid schizophrenia (principal); E11.9 Type 2 diabetes mellitus without complications; R45.851 Suicidal ideations; Z20.822 Contact with and (suspected) exposure to COVID-19; F12.10 Cannabis abuse, uncomplicated; F17.200 Nicotine dependence, unspecified, uncomplicated; I10 Essential (primary) hypertension; J44.9 Chronic obstructive pulmonary disease, unspecified; K21.9 Gastro-esophageal reflux disease without esophagitis; F10.10 Alcohol abuse, uncomplicated; Y90.9 Presence of alcohol in blood, level not specified; Z88.0 Allergy status to penicillin; Z88.8 Allergy status to other drugs, medicaments and biological substances
CPT/HCPCS: 80053; 82962; 85025; 87081; 99285; G0480

== ENCOUNTER 2022-12-28 05:47 | Emergency (ER) | payer MEDICAID ==
[~2022-12-28] VITALS: Ht 182.9 cm; Wt 86.4 kg
[2022-12-28] MEDS ORDERED: ACETAMINOPHEN 500 MG TABLET PO ONE (08:15)
[2022-12-28] MEDS ORDERED: PredniSONE 20 MG TABLET PO ONE (08:15)
[2022-12-28] MEDS ORDERED: ALBUTEROL SULFATE 2.5 MG/0.5 ML NEB SOLUTION NEB ONE (08:15)
[2022-12-28 12:05] VITALS: BP 151/89
== END 2022-12-28 12:30 | disposition home or self-care (01) ==
LOC: EMS 05:48
DX: J44.9 Chronic obstructive pulmonary disease, unspecified (principal); F32.A Depression, unspecified; I10 Essential (primary) hypertension; F20.9 Schizophrenia, unspecified; G89.29 Other chronic pain; M25.552 Pain in left hip; J45.909 Unspecified asthma, uncomplicated; F17.210 Nicotine dependence, cigarettes, uncomplicated; F12.90 Cannabis use, unspecified, uncomplicated; Z98.890 Other specified postprocedural states; Z90.49 Acquired absence of other specified parts of digestive tract; Z96.649 Presence of unspecified artificial hip joint; Z88.0 Allergy status to penicillin; Z88.6 Allergy status to analgesic agent
CPT/HCPCS: 99283; 94640; J7512

== ENCOUNTER 2022-12-29 20:34 | Emergency (ER) | payer MEDICAID ==
[~2022-12-29] VITALS: Ht 182.9 cm; Wt 81.4 kg
[2022-12-29] MEDS ORDERED: ALBUTEROL SULFATE 2.5 MG/0.5 ML NEB SOLUTION NEB ONE (21:15)
[2022-12-29] MEDS ORDERED: IPRATROPIUM BROMIDE 0.5 MG/2.5 ML NEB SOLUTION NEB ONE (21:15)
[2022-12-30] MEDS ORDERED: OLANZapine 5 MG TABLET PO ONE
[2022-12-30 00:13] LABS: EOSINOPHILS % (AUTO) 0.7 % (1.0-6.0); LYMPHOCYTES # (AUTO) 1.5 K/uL (1.0-4.8); LYMPHOCYTES % (AUTO) 19.1 % (22.0-44.0); MONOCYTES # (AUTO) 0.7 K/uL (0.1-1.0); RED BLOOD CELL COUNT(AUTO) 4.33 MIL/uL (4.50-5.90)
[2022-12-30 00:16] LABS: ANION GAP 7 mmol/L (8-16); CALCIUM, TOTAL 9.2 mg/dL (8.8-10.5); CARBON DIOXIDE 27 mmol/L (22-29); CHLORIDE 97 mmol/L (98-107); CREATININE 1.03 mg/dL (0.60-1.30); GLOMERULAR FILTR. RATE CALC > 60 mL/min (>60); GLUCOSE,RANDOM 112 mg/dL (70-110); POTASSIUM 3.5 mmol/L (3.5-5.1); SODIUM SERUM 131 mmol/L (136-145); UREA NITROGEN, BLOOD 16 mg/dL (7-18)
[2022-12-30 00:21] LABS: BASOPHILS % (AUTO) 0.5 % (0.0-2.0); HEMATOCRIT 40.5 % (41-53); HEMOGLOBIN 13.6 g/dL (13.5-17.5); MEAN CORPUSCULAR HEMOGLOBIN 31.3 pg (26.0-34.0); MEAN CORPUSCULAR HGB CONC 33.5 G/dL (31.0-37.0); MEAN CORPUSCULAR VOLUME 94 fL (80-100); MONOCYTES % (AUTO) 8.3 % (2.0-9.0); NEUTROPHILS # (AUTO) 5.6 K/uL (1.8-7.7); NEUTROPHILS % (AUTO) 71.4 % (40.0-70.0); PLATELET COUNT (AUTO) 255 K/uL (150-450)
[2022-12-30 00:22] LABS: ALANINE AMINOTRANSFERASE 37 U/L (12-78); ALKALINE PHOSPHATASE 105 U/L (46-116); ASPARTATE AMINOTRANSFERASE 39 U/L (15-37); BILIRUBIN,TOTAL 0.7 mg/dL (0.1-1.0); TOTAL PROTEIN, SERUM 7.2 g/dL (6.4-8.2)
[2022-12-30 05:00] VITALS: BP 135/80
== END 2022-12-30 23:45 | disposition home or self-care (01) ==
LOC: EMS 20:35
DX: R06.02 Shortness of breath (principal); F22 Delusional disorders; J44.9 Chronic obstructive pulmonary disease, unspecified; F32.A Depression, unspecified; I10 Essential (primary) hypertension; F20.9 Schizophrenia, unspecified; G62.9 Polyneuropathy, unspecified; F17.210 Nicotine dependence, cigarettes, uncomplicated; F12.90 Cannabis use, unspecified, uncomplicated; G89.29 Other chronic pain; M25.552 Pain in left hip; Z90.49 Acquired absence of other specified parts of digestive tract; Z98.890 Other specified postprocedural states
CPT/HCPCS: 71046; 80053; 84484; 85025; 93005; 99285; 36415-L1; 36415-TC; J7613

== ENCOUNTER 2022-12-30 15:44 | Inpatient (IN) | payer MEDICAID ==
[~2022-12-30] VITALS: Ht 185.4 cm; Wt 82.1 kg
[2022-12-30 16:41] LABS: GLUCOMETER DEV NAME(LOC) POC.BV
[2022-12-30] MEDS ORDERED: PNEUMOCOCCAL VACCINE POLYVALENT 0.5 ML VIAL [PPSV23] IM. ONE (19:15)
[2022-12-30] MEDS ORDERED: INFLUENZA VIRUS VACCINE QVS 2022-23 (6MO+)/PF 60 MCG/0.5 ML SYRINGE IM. ONE (19:15)
[2022-12-30 19:17] VITALS: BP 133/89
[2022-12-30] MEDS ORDERED: ALBUTEROL SULFATE HFA 90 MCG/PUFF 8 GM INHALER IH PRN (20:15)
[2022-12-30] MEDS: ZOLPIDEM TARTRATE 10 MG TABLET PO PRN (21:15)
[2022-12-30] MEDS: HALOPERIDOL 5 MG TABLET PO PRN (21:15)
[2022-12-31 09:14] VITALS: BP 105/43
[2022-12-31] MEDS ORDERED: PETROLATUM,WHITE 28 GM JELLY TP PRN (10:15)
[2022-12-31] MEDS ORDERED: MAGNESIUM HYDROXIDE SUSPENSION 30 ML UDCUP PO PRN (10:15)
[2022-12-31] MEDS ORDERED: MAG HYDROX/AL HYDROX/SIMETH ES 30 ML SUSPENSION UDCUP PO PRN (10:15)
[2022-12-31] MEDS ORDERED: LOPERAMIDE HCL 2 MG CAPSULE PO PRN (10:15)
[2022-12-31] MEDS ORDERED: CloNIDine HCL 0.1 MG TABLET PO PRN (10:15)
[2022-12-31] MEDS ORDERED: ACETAMINOPHEN 325 MG TABLET PO PRN (10:15)
[2022-12-31] MEDS ORDERED: DOCUSATE SODIUM 100 MG CAPSULE PO PRN (10:15)
[2022-12-31] MEDS ORDERED: GuaiFENesin/D-METHORPHAN [SUGAR-FREE] 200-20MG/10 ML SYRUP UDCUP PO PRN (10:15)
[2022-12-31] MEDS ORDERED: ONDANSETRON HCL 4 MG TABLET PO PRN (10:15)
[2022-12-31] MEDS: GABAPENTIN 300 MG CAPSULE PO SCH ×2 (12:14→16:02)
[2022-12-31] MEDS: BuPROPion HCL 150 MG SR TABLET PO SCH ×2 (12:15→16:02)
[2022-12-31 13:46] VITALS: BP 128/59
[2022-12-31] MEDS: NICOTINE 14 MG/24 HOUR PATCH TD PRN (16:03)
[2022-12-31] MEDS ORDERED: GABAPENTIN 300 MG CAPSULE PO SCH (17:00)
[2022-12-31 20:00] VITALS: BP 120/68
[2022-12-31] MEDS: TAMSULOSIN HCL 0.4 MG CAPSULE PO SCH (20:36)
[2022-12-31] MEDS ORDERED: OLANZapine 10 MG TABLET PO SCH (21:00)
[2022-12-31] MEDS: ALBUTEROL SULFATE HFA 90 MCG/PUFF 8 GM INHALER IH PRN (22:53)
[2022-12-31] MEDS: HALOPERIDOL 5 MG TABLET PO PRN (23:20)
[2022-12-31] MEDS: ZOLPIDEM TARTRATE 10 MG TABLET PO PRN (23:20)
[2023-01-01] MEDS: ALBUTEROL SULFATE HFA 90 MCG/PUFF 8 GM INHALER IH PRN ×3 (04:55→23:00)
[2023-01-01 06:02] VITALS: BP 118/73
[2023-01-01] MEDS: GABAPENTIN 300 MG CAPSULE PO SCH ×2 (08:37→16:11)
[2023-01-01] MEDS: BuPROPion HCL 150 MG SR TABLET PO SCH ×2 (08:37→16:11)
[2023-01-01 09:02] VITALS: BP 137/65
[2023-01-01] MEDS: LORazepam 2 MG TABLET PO PRN (15:32)
[2023-01-01] MEDS: OLANZapine 10 MG TABLET PO SCH (20:34)
[2023-01-01] MEDS: TAMSULOSIN HCL 0.4 MG CAPSULE PO SCH (20:34)
[2023-01-01 20:40] VITALS: BP 145/66
[2023-01-02] MEDS: BuPROPion HCL 150 MG SR TABLET PO SCH ×2 (09:36→16:38)
[2023-01-02] MEDS: GABAPENTIN 300 MG CAPSULE PO SCH ×2 (09:36→16:38)
[2023-01-02 09:44] VITALS: BP 117/60
[2023-01-02] MEDS: NICOTINE 14 MG/24 HOUR PATCH TD PRN (19:06)
[2023-01-02] MEDS: LORazepam 2 MG TABLET PO PRN (19:10)
[2023-01-02] MEDS: TAMSULOSIN HCL 0.4 MG CAPSULE PO SCH (20:33)
[2023-01-02] MEDS: OLANZapine 10 MG TABLET PO SCH (20:33)
[2023-01-02 20:34] VITALS: BP 117/68
[2023-01-03 08:16] VITALS: BP 122/57
[2023-01-03] MEDS: BuPROPion HCL 150 MG SR TABLET PO SCH ×2 (08:44→17:00)
[2023-01-03] MEDS: GABAPENTIN 300 MG CAPSULE PO SCH ×2 (08:44→17:01)
[2023-01-03] MEDS: TAMSULOSIN HCL 0.4 MG CAPSULE PO SCH (20:15)
[2023-01-03] MEDS: LORazepam 2 MG TABLET PO PRN (20:15)
[2023-01-03] MEDS: OLANZapine 10 MG TABLET PO SCH (20:16)
[2023-01-03 20:21] VITALS: BP 110/71
[2023-01-03] MEDS ORDERED: BISACODYL 5 MG EC TABLET PO PRN (20:30)
[2023-01-03] MEDS ORDERED: IBUPROFEN 400 MG TABLET PO PRN (20:30)
[2023-01-03] MEDS: ZOLPIDEM TARTRATE 10 MG TABLET PO PRN (20:45)
[2023-01-04] MEDS: ALBUTEROL SULFATE HFA 90 MCG/PUFF 8 GM INHALER IH PRN ×3 (02:48→22:32)
[2023-01-04] MEDS: GABAPENTIN 300 MG CAPSULE PO SCH ×2 (08:18→16:15)
[2023-01-04] MEDS: BuPROPion HCL 150 MG SR TABLET PO SCH ×2 (08:18→16:15)
[2023-01-04 13:35] VITALS: BP 120/68
[2023-01-04] MEDS: NICOTINE 14 MG/24 HOUR PATCH TD PRN (13:55)
[2023-01-04] MEDS: LORazepam 2 MG TABLET PO PRN ×2 (15:37→19:40)
[2023-01-04] MEDS: TAMSULOSIN HCL 0.4 MG CAPSULE PO SCH (20:26)
[2023-01-04] MEDS: OLANZapine 10 MG TABLET PO SCH (20:26)
[2023-01-04 20:41] VITALS: BP 107/64
[2023-01-05] MEDS: GABAPENTIN 300 MG CAPSULE PO SCH ×2 (08:16→16:45)
[2023-01-05] MEDS: BuPROPion HCL 150 MG SR TABLET PO SCH ×2 (08:16→16:45)
[2023-01-05 08:26] LABS: GLUCOMETER DEV NAME(LOC) POC.BV
[2023-01-05 08:27] VITALS: BP 115/75
[2023-01-05 20:06] VITALS: BP 140/77
[2023-01-05] MEDS: TAMSULOSIN HCL 0.4 MG CAPSULE PO SCH (20:13)
[2023-01-05] MEDS: OLANZapine 10 MG TABLET PO SCH (20:13)
[2023-01-05] MEDS: LORazepam 2 MG TABLET PO PRN (20:32)
[2023-01-05] MEDS: ZOLPIDEM TARTRATE 10 MG TABLET PO PRN (21:37)
[2023-01-06 09:40] VITALS: BP 128/76
[2023-01-06] MEDS: BuPROPion HCL 150 MG SR TABLET PO SCH ×2 (09:41→16:30)
[2023-01-06] MEDS: GABAPENTIN 300 MG CAPSULE PO SCH ×2 (09:41→16:30)
[2023-01-06] MEDS: LORazepam 2 MG TABLET PO PRN (18:46)
[2023-01-06] MEDS: NICOTINE 14 MG/24 HOUR PATCH TD PRN (18:48)
[2023-01-06] MEDS: ALBUTEROL SULFATE HFA 90 MCG/PUFF 8 GM INHALER IH PRN (18:49)
[2023-01-06 20:19] VITALS: BP 139/73
[2023-01-06] MEDS: TAMSULOSIN HCL 0.4 MG CAPSULE PO SCH (20:33)
[2023-01-06] MEDS: OLANZapine 10 MG TABLET PO SCH (20:33)
[2023-01-06] MEDS: ZOLPIDEM TARTRATE 10 MG TABLET PO PRN (23:11)
[2023-01-07 08:55] VITALS: BP 120/66
[2023-01-07] MEDS: BuPROPion HCL 150 MG SR TABLET PO SCH ×2 (09:38→16:28)
[2023-01-07] MEDS: GABAPENTIN 300 MG CAPSULE PO SCH ×2 (09:38→16:28)
[2023-01-07] MEDS: NICOTINE 14 MG/24 HOUR PATCH TD SCH (13:16)
[2023-01-07] MEDS: ALBUTEROL SULFATE HFA 90 MCG/PUFF 8 GM INHALER IH PRN (15:13)
[2023-01-07] MEDS: LORazepam 2 MG TABLET PO PRN (17:43)
[2023-01-07 20:00] VITALS: BP 132/67
[2023-01-07] MEDS: OLANZapine 10 MG TABLET PO SCH (21:39)
[2023-01-07] MEDS: TAMSULOSIN HCL 0.4 MG CAPSULE PO SCH (21:39)
[2023-01-07] MEDS: ZOLPIDEM TARTRATE 10 MG TABLET PO PRN (21:39)
[2023-01-08] MEDS: GABAPENTIN 300 MG CAPSULE PO SCH ×2 (09:15→17:09)
[2023-01-08] MEDS: BuPROPion HCL 150 MG SR TABLET PO SCH ×2 (09:15→17:09)
[2023-01-08] MEDS: NICOTINE 14 MG/24 HOUR PATCH TD SCH (09:15)
[2023-01-08 09:52] VITALS: BP 121/65
[2023-01-08] MEDS: LORazepam 2 MG TABLET PO PRN ×2 (12:47→18:18)
[2023-01-08] MEDS: TAMSULOSIN HCL 0.4 MG CAPSULE PO SCH (20:03)
[2023-01-08] MEDS: OLANZapine 10 MG TABLET PO SCH (20:03)
[2023-01-08 20:33] VITALS: BP 122/54
[2023-01-08] MEDS: ZOLPIDEM TARTRATE 10 MG TABLET PO PRN (21:43)
[2023-01-09] MEDS: LORazepam 2 MG TABLET PO PRN (01:12)
[2023-01-09] MEDS: GABAPENTIN 300 MG CAPSULE PO SCH ×2 (08:29→16:08)
[2023-01-09] MEDS: BuPROPion HCL 150 MG SR TABLET PO SCH ×2 (08:29→16:08)
[2023-01-09] MEDS: NICOTINE 14 MG/24 HOUR PATCH TD SCH (08:30)
[2023-01-09 09:11] VITALS: BP 124/60
[2023-01-09] MEDS: ALBUTEROL SULFATE HFA 90 MCG/PUFF 8 GM INHALER IH PRN (12:10)
[2023-01-09] MEDS ORDERED: TAMS-13 PO (16:19)
[2023-01-09] MEDS ORDERED: OLAN10TA74 PO (16:19)
[2023-01-09] MEDS ORDERED: GABA-1181 PO (19:35)
[2023-01-09] MEDS ORDERED: OLAN10 PO (19:35)
[2023-01-09] MEDS ORDERED: BUPR-113 PO (19:35)
== END 2023-01-09 16:45 | disposition home or self-care (01) | DRG 750 ==
LOC: B2S 18:28
PROVIDERS: ADMIT Psychiatry & Neurology Child & Adolescent Psychiatry; ATTEND Psychiatry & Neurology Child & Adolescent Psychiatry
DX: F20.0 Paranoid schizophrenia (principal); E11.42 Type 2 diabetes mellitus with diabetic polyneuropathy; D64.9 Anemia, unspecified; F10.10 Alcohol abuse, uncomplicated; F32.A Depression, unspecified; Z20.822 Contact with and (suspected) exposure to COVID-19; I10 Essential (primary) hypertension; J44.9 Chronic obstructive pulmonary disease, unspecified; F41.9 Anxiety disorder, unspecified; K44.9 Diaphragmatic hernia without obstruction or gangrene; N40.0 Benign prostatic hyperplasia without lower urinary tract symptoms; G89.29 Other chronic pain; Z59.00 Homelessness unspecified; Z88.0 Allergy status to penicillin; Z88.6 Allergy status to analgesic agent
CPT/HCPCS: J3535

== ENCOUNTER 2023-01-22 22:07 | Inpatient (IN) | payer MEDICAID ==
[~2023-01-22] VITALS: Ht 185.4 cm; Wt 81.6 kg
[~2023-01-22 22:07] MED LIST changes: +OLAN10TA74 PO
[2023-01-22 22:52] LABS: ANION GAP 7 mmol/L (8-16); BASOPHILS % (AUTO) 0.4 % (0.0-2.0); CALCIUM, TOTAL 8.7 mg/dL (8.8-10.5); CARBON DIOXIDE 30 mmol/L (22-29); CHLORIDE 99 mmol/L (98-107); CREATININE 1.06 mg/dL (0.60-1.30); EOSINOPHILS % (AUTO) 1.1 % (1.0-6.0); GLOMERULAR FILTR. RATE CALC > 60 mL/min (>60); GLUCOSE,RANDOM 95 mg/dL (70-110); HEMATOCRIT 37.7 % (41-53); HEMOGLOBIN 12.5 g/dL (13.5-17.5); LYMPHOCYTES # (AUTO) 1.7 K/uL (1.0-4.8); LYMPHOCYTES % (AUTO) 18.2 % (22.0-44.0); MEAN CORPUSCULAR HEMOGLOBIN 31.2 pg (26.0-34.0); MEAN CORPUSCULAR HGB CONC 33.1 G/dL (31.0-37.0); MEAN CORPUSCULAR VOLUME 94 fL (80-100); MONOCYTES # (AUTO) 0.6 K/uL (0.1-1.0); MONOCYTES % (AUTO) 6.6 % (2.0-9.0); NEUTROPHILS # (AUTO) 6.9 K/uL (1.8-7.7); NEUTROPHILS % (AUTO) 73.7 % (40.0-70.0); PLATELET COUNT (AUTO) 259 K/uL (150-450); POTASSIUM 3.1 mmol/L (3.5-5.1); RED CELL DISTRIBUTION WIDTH 13.4 % (11.5-14.5); SODIUM SERUM 136 mmol/L (136-145); UREA NITROGEN, BLOOD 15 mg/dL (7-18)
[2023-01-22 22:58] LABS: ALANINE AMINOTRANSFERASE 22 U/L (12-78); ALBUMIN 3.4 g/dL (3.4-5.0); ALKALINE PHOSPHATASE 86 U/L (46-116); ASPARTATE AMINOTRANSFERASE 23 U/L (15-37); BILIRUBIN,TOTAL 0.3 mg/dL (0.1-1.0); TOTAL PROTEIN, SERUM 6.1 g/dL (6.4-8.2)
[2023-01-22 23:00] LABS: COVID AG,FIA SOURCE NASOPHARYNGEAL
[2023-01-22] MEDS ORDERED: HALOPERIDOL 5 MG TABLET PO PRN (23:15)
[2023-01-22] MEDS ORDERED: ZOLPIDEM TARTRATE 10 MG TABLET PO PRN (23:15)
[2023-01-23] MEDS ORDERED: POTASSIUM CHLORIDE 20 MEQ ER TABLET PO ONE (01:15)
[2023-01-23 06:13] LABS: APPEARANCE,URINE CLEAR (CLEAR); BILIRUBIN,URINE NEGATIVE (NEGATIVE); GLUCOSE, URINE (UA) NEGATIVE (NEGATIVE); KETONES,URINE NEGATIVE (NEGATIVE); LEUKOCYTE ESTERASE ,URINE NEGATIVE (NEGATIVE); NITRATE,URINE NEGATIVE (NEGATIVE); OCCULT BLOOD,URINE NEGATIVE (NEGATIVE); PH,URINE 6.5 (5.0-8.0); PROTEIN,URINE NEGATIVE (NEGATIVE); SPECIFIC GRAVITIY, URINE 1.008 (1.003-1.030); UROBILINOGEN,URINE <=1.0 mg/dL (<=1.0)
[2023-01-23 06:17] LABS: AMPHET/METH SCREEN,URINE POSITIVE (NEGATIVE); BARBITURATE SCREEN, URINE NEGATIVE (NEGATIVE); BENZODIAZEPINES SCREEN,URINE NEGATIVE (NEGATIVE); CANNABINOID SCREEN,URINE NEGATIVE (NEGATIVE); COCAINE SCREEN,URINE NEGATIVE (NEGATIVE); METHADONE SCREEN, URINE NEGATIVE (NEGATIVE); OPIATE SCREEN,URINE NEGATIVE (NEGATIVE); PHENCYCLIDINE SCREEN,URINE NEGATIVE (NEGATIVE)
[2023-01-23 09:45] VITALS: BP 141/81
[2023-01-23] MEDS ORDERED: ALBUTEROL SULFATE HFA 90 MCG/PUFF 8 GM INHALER IH PRN (15:45)
[2023-01-23] MEDS: BuPROPion HCL XL 150 MG ER TABLET PO SCH (16:19)
[2023-01-23] MEDS ORDERED: MAG HYDROX/AL HYDROX/SIMETH ES 30 ML SUSPENSION UDCUP PO PRN (16:30)
[2023-01-23] MEDS ORDERED: ONDANSETRON HCL 4 MG TABLET PO PRN (16:30)
[2023-01-23] MEDS ORDERED: CloNIDine HCL 0.1 MG TABLET PO PRN (16:30)
[2023-01-23] MEDS ORDERED: LOPERAMIDE HCL 2 MG CAPSULE PO PRN (16:30)
[2023-01-23] MEDS ORDERED: PETROLATUM,WHITE 28 GM JELLY TP PRN (16:30)
[2023-01-23] MEDS ORDERED: GuaiFENesin/D-METHORPHAN [SUGAR-FREE] 200-20MG/10 ML SYRUP UDCUP PO PRN (16:30)
[2023-01-23] MEDS: OLANZapine 10 MG TABLET PO SCH (20:04)
[2023-01-23] MEDS: TAMSULOSIN HCL 0.4 MG CAPSULE PO SCH (20:04)
[2023-01-23] MEDS: ACETAMINOPHEN 325 MG TABLET PO PRN (20:05)
[2023-01-23] MEDS: ALBUTEROL SULFATE HFA 90 MCG/PUFF 8 GM INHALER IH PRN (20:05)
[2023-01-23 20:31] VITALS: BP 131/61
[2023-01-23] MEDS ORDERED: TAMSULOSIN HCL 0.4 MG CAPSULE PO SCH (21:00)
[2023-01-24 08:36] VITALS: BP 128/63
[2023-01-24] MEDS: OLANZapine 10 MG TABLET PO SCH ×2 (09:04→20:15)
[2023-01-24] MEDS: BuPROPion HCL XL 150 MG ER TABLET PO SCH (09:04)
[2023-01-24] MEDS: ALBUTEROL SULFATE HFA 90 MCG/PUFF 8 GM INHALER IH PRN ×3 (09:48→19:02)
[2023-01-24] MEDS: NICOTINE 14 MG/24 HOUR PATCH TD PRN (12:46)
[2023-01-24] MEDS: MAGNESIUM HYDROXIDE SUSPENSION 30 ML UDCUP PO PRN (19:09)
[2023-01-24] MEDS: TAMSULOSIN HCL 0.4 MG CAPSULE PO SCH (20:15)
[2023-01-24] MEDS: LORazepam 2 MG TABLET PO PRN (20:15)
[2023-01-24 20:16] VITALS: BP 148/80
[2023-01-24] MEDS: ACETAMINOPHEN 325 MG TABLET PO PRN (20:18)
[2023-01-25] MEDS: BuPROPion HCL XL 150 MG ER TABLET PO SCH (08:17)
[2023-01-25] MEDS: OLANZapine 10 MG TABLET PO SCH ×2 (08:17→20:22)
[2023-01-25 08:28] VITALS: BP 115/71
[2023-01-25] MEDS: NICOTINE 14 MG/24 HOUR PATCH TD PRN (18:12)
[2023-01-25] MEDS: ALBUTEROL SULFATE HFA 90 MCG/PUFF 8 GM INHALER IH PRN (18:12)
[2023-01-25] MEDS: MAGNESIUM HYDROXIDE SUSPENSION 30 ML UDCUP PO PRN (18:13)
[2023-01-25] MEDS: DOCUSATE SODIUM 100 MG CAPSULE PO PRN (18:13)
[2023-01-25] MEDS: LORazepam 2 MG TABLET PO PRN ×2 (18:17→22:20)
[2023-01-25] MEDS: TAMSULOSIN HCL 0.4 MG CAPSULE PO SCH (20:22)
[2023-01-25 20:27] VITALS: BP 126/62
[2023-01-26] MEDS: OLANZapine 10 MG TABLET PO SCH ×2 (08:39→20:19)
[2023-01-26] MEDS: BuPROPion HCL XL 150 MG ER TABLET PO SCH (08:39)
[2023-01-26] MEDS: LORazepam 2 MG TABLET PO PRN ×2 (09:15→20:20)
[2023-01-26] MEDS: DOCUSATE SODIUM 100 MG CAPSULE PO PRN (17:49)
[2023-01-26] MEDS: MAGNESIUM HYDROXIDE SUSPENSION 30 ML UDCUP PO PRN (17:49)
[2023-01-26] MEDS: TAMSULOSIN HCL 0.4 MG CAPSULE PO SCH (20:20)
[2023-01-26 20:22] VITALS: BP 140/67
[2023-01-26] MEDS: ALBUTEROL SULFATE HFA 90 MCG/PUFF 8 GM INHALER IH PRN (20:35)
[2023-01-27] MEDS: DOCUSATE SODIUM 100 MG CAPSULE PO PRN ×2 (08:29→19:43)
[2023-01-27] MEDS: LORazepam 2 MG TABLET PO PRN ×2 (08:29→20:46)
[2023-01-27] MEDS: BuPROPion HCL XL 150 MG ER TABLET PO SCH (08:29)
[2023-01-27] MEDS: OLANZapine 10 MG TABLET PO SCH ×2 (08:29→20:46)
[2023-01-27] MEDS: MAGNESIUM HYDROXIDE SUSPENSION 30 ML UDCUP PO PRN (19:43)
[2023-01-27] MEDS: TAMSULOSIN HCL 0.4 MG CAPSULE PO SCH (20:46)
[2023-01-27] MEDS: ALBUTEROL SULFATE HFA 90 MCG/PUFF 8 GM INHALER IH PRN (20:46)
[2023-01-27] MEDS: NICOTINE 14 MG/24 HOUR PATCH TD PRN (20:46)
[2023-01-27 20:47] VITALS: BP 122/73
[2023-01-28] MEDS: OLANZapine 10 MG TABLET PO SCH ×2 (08:24→20:54)
[2023-01-28] MEDS: BuPROPion HCL XL 150 MG ER TABLET PO SCH (08:24)
[2023-01-28 08:26] LABS: GLUCOMETER DEV NAME(LOC) POC.BV
[2023-01-28] MEDS: ALBUTEROL SULFATE HFA 90 MCG/PUFF 8 GM INHALER IH PRN (17:11)
[2023-01-28] MEDS: LORazepam 2 MG TABLET PO PRN ×2 (17:11→21:56)
[2023-01-28 20:41] VITALS: BP 112/60
[2023-01-28] MEDS: NICOTINE 14 MG/24 HOUR PATCH TD PRN (20:54)
[2023-01-28] MEDS: TAMSULOSIN HCL 0.4 MG CAPSULE PO SCH (20:54)
[2023-01-29] MEDS: OLANZapine 10 MG TABLET PO SCH (08:18)
[2023-01-29] MEDS: BuPROPion HCL XL 150 MG ER TABLET PO SCH (08:18)
[2023-01-29 08:50] VITALS: BP 115/75
[2023-01-29] MEDS ORDERED: OLAN10 PO (12:14)
[2023-01-29] MEDS ORDERED: BUPR-49 PO (12:14)
[2023-01-29] MEDS ORDERED: OLAN10TA74 PO (13:30)
[2023-01-29] MEDS ORDERED: BUPR-50 PO (13:31)
== END 2023-01-29 18:00 | disposition home or self-care (01) | DRG 750 ==
LOC: EMS 22:25 → B3A 01-23 04:00
PROVIDERS: ADMIT Psychiatry & Neurology Child & Adolescent Psychiatry; ATTEND Psychiatry & Neurology Child & Adolescent Psychiatry
DX: F20.0 Paranoid schizophrenia (principal); R45.851 Suicidal ideations; E11.9 Type 2 diabetes mellitus without complications; D64.9 Anemia, unspecified; E87.6 Hypokalemia; G89.29 Other chronic pain; I10 Essential (primary) hypertension; J44.9 Chronic obstructive pulmonary disease, unspecified; Z88.8 Allergy status to other drugs, medicaments and biological substances; Z20.822 Contact with and (suspected) exposure to COVID-19; Z88.6 Allergy status to analgesic agent; M19.09 Primary osteoarthritis, other specified site; Z87.891 Personal history of nicotine dependence; Z88.0 Allergy status to penicillin; K59.00 Constipation, unspecified
CPT/HCPCS: 80053; 80307; 81003; 85025; 87081; 99285; G0480; J3535

== ENCOUNTER 2023-08-23 20:52 | Inpatient (IN) | payer MEDICARE, MEDICAID ==
[~2023-08-23] VITALS: Ht 182.9 cm; Wt 73.9 kg
[~2023-08-23 20:52] MED LIST changes: -BUPR-113 PO; +DIVA-112 PO; +LITH300C3 PO; -OLAN10 PO; -OLAN10TA74 PO; +OLAN7.5T22 PO; -TAMS-13 PO; +TAMS0.4C94 PO; +TIOT185 IH
[2023-08-23 21:56] LABS: GLUCOMETER DEV NAME(LOC) POC.BV; POC SARS-COV2 AG, FIA NEGATIVE (NEGATIVE)
[2023-08-23] MEDS ORDERED: HALOPERIDOL 5 MG TABLET PO PRN (22:00)
[2023-08-23] MEDS ORDERED: LORazepam 2 MG TABLET PO PRN (22:00)
[2023-08-23] MEDS: ZOLPIDEM TARTRATE 10 MG TABLET PO PRN (23:22)
[2023-08-24] MEDS ORDERED: INFLUENZA VIRUS VACCINE QVS 2023-24 (6MO+)/PF 60 MCG/0.5 ML SYRINGE IM. ONE (00:30)
[2023-08-24] MEDS ORDERED: PNEUMOCOCCAL VACCINE POLYVALENT 0.5 ML SYRINGE [PPSV23] IM. ONE (00:30)
[2023-08-24] MEDS ORDERED: LOPERAMIDE HCL 2 MG CAPSULE PO PRN (05:00)
[2023-08-24] MEDS ORDERED: ALBUTEROL SULFATE HFA 90 MCG/PUFF 8 GM INHALER IH PRN (05:00)
[2023-08-24] MEDS ORDERED: BENZOCAINE/MENTHOL LOZENGE PO PRN (05:00)
[2023-08-24] MEDS ORDERED: MAG HYDROX/ALUMINUM HYD/SIMETH ES 30 ML SUSPENSION UDCUP PO PRN (05:00)
[2023-08-24] MEDS ORDERED: PETROLATUM,WHITE 28 GM JELLY TP PRN (05:00)
[2023-08-24] MEDS ORDERED: ONDANSETRON HCL 4 MG TABLET PO PRN (05:00)
[2023-08-24] MEDS ORDERED: CloNIDine HCL 0.1 MG TABLET PO PRN (05:00)
[2023-08-24] MEDS ORDERED: ACETAMINOPHEN 325 MG TABLET PO PRN (05:00)
[2023-08-24] MEDS ORDERED: DOCUSATE SODIUM 100 MG CAPSULE PO PRN (05:00)
[2023-08-24] MEDS ORDERED: OMEPRAZOLE 20 MG CAPSULE PO PRN (05:00)
[2023-08-24] MEDS ORDERED: MAGNESIUM HYDROXIDE SUSPENSION 30 ML UDCUP PO PRN (05:00)
[2023-08-24] MEDS ORDERED: BACITRACIN 28 GM OINTMENT TP PRN (05:00)
[2023-08-24 06:05] VITALS: BP 106/65; PULSE 79; RESP 18; TEMP 97.9; O2SAT 97
[2023-08-24 08:25] VITALS: BP 102/64; PULSE 76; RESP 17; TEMP 97.1; O2SAT 96
[2023-08-24] MEDS: TIOTROPIUM BROMIDE 18 MCG/INH HANDIHALER [5] IH SCH (08:57)
[2023-08-24 20:16] VITALS: BP 124/83; PULSE 73; RESP 18; TEMP 97.6; O2SAT 98
[2023-08-24] MEDS ORDERED: TAMSULOSIN HCL 0.4 MG CAPSULE PO SCH (21:00)
[2023-08-24] MEDS: ZOLPIDEM TARTRATE 10 MG TABLET PO PRN (21:05)
[2023-08-25] MEDS: TIOTROPIUM BROMIDE 18 MCG/INH HANDIHALER [5] IH SCH (08:52)
== END 2023-08-25 11:22 | disposition home or self-care (01) | DRG 750 ==
LOC: B3A 21:49 → UNDOADMIN 21:49 → B3A 21:50
PROVIDERS: ADMIT Psychiatry & Neurology Psychiatry; ATTEND Psychiatry & Neurology Psychiatry
DX: F25.9 Schizoaffective disorder, unspecified (principal); F15.10 Other stimulant abuse, uncomplicated; F41.9 Anxiety disorder, unspecified; J44.9 Chronic obstructive pulmonary disease, unspecified; I10 Essential (primary) hypertension; M19.90 Unspecified osteoarthritis, unspecified site; Z20.822 Contact with and (suspected) exposure to COVID-19; G47.00 Insomnia, unspecified; K59.00 Constipation, unspecified; G89.29 Other chronic pain; Z72.0 Tobacco use
CPT/HCPCS: 87081; J3535

== ENCOUNTER 2023-08-31 01:40 | Inpatient (IN) | payer MEDICARE, MEDICAID ==
[~2023-08-31] VITALS: Ht 185.4 cm; Wt 73.6 kg
[2023-08-31] MEDS ORDERED: ZOLPIDEM TARTRATE 10 MG TABLET PO PRN (02:45)
[2023-08-31] MEDS ORDERED: HALOPERIDOL 5 MG TABLET PO PRN (02:45)
[2023-08-31 02:49] LABS: COVID AG,FIA SOURCE NASAL SWAB
[2023-08-31] MEDS: LORazepam 2 MG TABLET PO PRN ×2 (02:53→12:04)
[2023-08-31 03:23] LABS: SARS-COV2 (COVID) ANTIGEN,FIA Negative (Negative)
[2023-08-31 03:28] LABS: BASOPHILS % (AUTO) 0.3 % (0.0-2.0); EOSINOPHILS % (AUTO) 1.7 % (1.0-6.0); HEMOGLOBIN 12.2 g/dL (13.5-17.5); LYMPHOCYTES # (AUTO) 1.8 K/uL (1.0-4.8); LYMPHOCYTES % (AUTO) 20.3 % (22.0-44.0); MEAN CORPUSCULAR HEMOGLOBIN 33.1 pg (26.0-34.0); MEAN CORPUSCULAR VOLUME 97 fL (80-100); MONOCYTES # (AUTO) 0.8 K/uL (0.1-1.0); MONOCYTES % (AUTO) 9.4 % (2.0-9.0); NEUTROPHILS % (AUTO) 68.3 % (40.0-70.0); PLATELET COUNT (AUTO) 243 K/uL (150-450); RED BLOOD CELL COUNT(AUTO) 3.69 MIL/uL (4.50-5.90); RED CELL DISTRIBUTION WIDTH 13.1 % (11.5-14.5); WHITE BLOOD COUNT (AUTO) 8.8 K/uL (4.5-11.0)
[2023-08-31 03:36] LABS: ANION GAP 7 mmol/L (8-16); CALCIUM, TOTAL 8.6 mg/dL (8.8-10.5); CARBON DIOXIDE 29 mmol/L (22-29); CHLORIDE 102 mmol/L (98-107); GLOMERULAR FILTR. RATE CALC > 60 mL/min (>60); GLUCOSE,RANDOM 107 mg/dL (70-110); POTASSIUM 3.5 mmol/L (3.5-5.1); SODIUM SERUM 138 mmol/L (136-145); UREA NITROGEN, BLOOD 16 mg/dL (7-18)
[2023-08-31 03:42] LABS: ALANINE AMINOTRANSFERASE 38 U/L (12-78); ALKALINE PHOSPHATASE 92 U/L (46-116); ASPARTATE AMINOTRANSFERASE 23 U/L (15-37); BILIRUBIN,TOTAL 0.3 mg/dL (0.1-1.0); TOTAL PROTEIN, SERUM 5.7 g/dL (6.4-8.2)
[2023-08-31 03:47] LABS: ALCOHOL, BLOOD (SERUM) < 3 mg/dL (0-10)
[2023-08-31 05:16] VITALS: RESP 18; TEMP 98.2
[2023-08-31] MEDS ORDERED: MAG HYDROX/ALUMINUM HYD/SIMETH ES 30 ML SUSPENSION UDCUP PO PRN (05:30)
[2023-08-31] MEDS ORDERED: CloNIDine HCL 0.1 MG TABLET PO PRN (05:30)
[2023-08-31] MEDS ORDERED: LOPERAMIDE HCL 2 MG CAPSULE PO PRN (05:30)
[2023-08-31] MEDS ORDERED: PETROLATUM,WHITE 28 GM JELLY TP PRN (05:30)
[2023-08-31] MEDS ORDERED: OMEPRAZOLE 20 MG CAPSULE PO PRN (05:30)
[2023-08-31] MEDS ORDERED: BENZOCAINE/MENTHOL LOZENGE PO PRN (05:30)
[2023-08-31] MEDS ORDERED: BACITRACIN 28 GM OINTMENT TP PRN (05:30)
[2023-08-31] MEDS ORDERED: DOCUSATE SODIUM 100 MG CAPSULE PO PRN (05:30)
[2023-08-31] MEDS ORDERED: ONDANSETRON HCL 4 MG TABLET PO PRN (05:30)
[2023-08-31] MEDS ORDERED: MAGNESIUM HYDROXIDE SUSPENSION 30 ML UDCUP PO PRN (05:30)
[2023-08-31] MEDS ORDERED: PNEUMOCOCCAL VACCINE POLYVALENT 0.5 ML SYRINGE [PPSV23] IM. ONE (06:15)
[2023-08-31] MEDS ORDERED: INFLUENZA VIRUS VACCINE QVS 2023-24 (6MO+)/PF 60 MCG/0.5 ML SYRINGE IM. ONE (06:15)
[2023-08-31] MEDS: ALBUTEROL SULFATE HFA 90 MCG/PUFF 8 GM INHALER IH PRN ×2 (12:04→20:02)
[2023-08-31] MEDS: TIOTROPIUM BROMIDE 18 MCG/INH HANDIHALER [5] IH SCH (14:06)
[2023-08-31 22:29] VITALS: BP 134/93; PULSE 95; RESP 19; TEMP 97.7; O2SAT 98
[2023-09-01] MEDS: LORazepam 2 MG TABLET PO PRN ×4 (08:43→23:56)
[2023-09-01] MEDS: TIOTROPIUM BROMIDE 18 MCG/INH HANDIHALER [5] IH SCH (08:43)
[2023-09-01] MEDS: ALBUTEROL SULFATE HFA 90 MCG/PUFF 8 GM INHALER IH PRN ×2 (08:43→18:56)
[2023-09-01 09:57] VITALS: BP 128/57; PULSE 90; RESP 18; TEMP 97.5; O2SAT 100
[2023-09-01 17:02] VITALS: BP 140/65; PULSE 89; RESP 18; TEMP 98.3; O2SAT 99
[2023-09-01] MEDS: ACETAMINOPHEN 325 MG TABLET PO PRN (17:02)
[2023-09-01 21:49] VITALS: RESP 18
[2023-09-02] VITALS (9 sets, daily range): BP systolic 129–164; BP diastolic 72–95; PULSE 72–89; RESP 18–19; TEMP 97.5–97.7; O2SAT 96–98
[2023-09-02] MEDS: ACETAMINOPHEN 325 MG TABLET PO PRN ×3 (05:57→16:56)
[2023-09-02] MEDS: TIOTROPIUM BROMIDE 18 MCG/INH HANDIHALER [5] IH SCH (09:05)
[2023-09-02] MEDS: LORazepam 2 MG TABLET PO PRN (09:53)
[2023-09-02] MEDS: ALBUTEROL SULFATE HFA 90 MCG/PUFF 8 GM INHALER IH PRN (12:31)
[2023-09-03] MEDS: LORazepam 2 MG TABLET PO PRN (01:04)
[2023-09-03 08:37] VITALS: BP 152/84; PULSE 72; RESP 18; TEMP 97.8; O2SAT 98
[2023-09-03] MEDS: TIOTROPIUM BROMIDE 18 MCG/INH HANDIHALER [5] IH SCH (09:12)
== END 2023-09-03 13:10 | disposition home or self-care (01) | DRG 753 ==
LOC: EMS 01:43 → 3EC 02:30
PROVIDERS: ADMIT Psychiatry & Neurology Psychiatry; ATTEND Psychiatry & Neurology Psychiatry
DX: F31.9 Bipolar disorder, unspecified (principal); F25.9 Schizoaffective disorder, unspecified; E11.40 Type 2 diabetes mellitus with diabetic neuropathy, unspecified; Z91.148 Patient's other noncompliance with medication regimen for other reason; F10.10 Alcohol abuse, uncomplicated; G47.00 Insomnia, unspecified; I10 Essential (primary) hypertension; J44.9 Chronic obstructive pulmonary disease, unspecified; K59.00 Constipation, unspecified; Z20.822 Contact with and (suspected) exposure to COVID-19; F41.9 Anxiety disorder, unspecified; G89.29 Other chronic pain; F19.10 Other psychoactive substance abuse, uncomplicated; Z96.649 Presence of unspecified artificial hip joint; Z90.49 Acquired absence of other specified parts of digestive tract; Z87.891 Personal history of nicotine dependence; Z88.0 Allergy status to penicillin; Z88.6 Allergy status to analgesic agent
CPT/HCPCS: 80053; 85025; 87081; 99285; G0480; J3535